=== PATIENT | female | born 1955 | race Hispanic/Latino ===

== ENCOUNTER 2018-12-13 16:20 | Inpatient (IN) | payer MEDICARE ==
--- NOTE | 2018-12-13 16:29 | Emergency Department Report ---
Blank Doc - Documentation Documentation: This is a 63-year-old female that presents with right sided abdominal pain wih radiation to right flank area. This initial assessment/diagnostic orders/clinical plan/treatment(s) is/are subject to change based on patient's health status, clinical progression and re- assessment by fellow clinical providers in the ED. Further treatment and workup at subsequent clinical providers discretion. Patient/guardians urged not to elope from the ED as their condition may be serious if not clinically assessed and managed. Initial orders include: 1- Patient sent to [facility] for further evaluation and treatment 2- labs 3- UA
[2018-12-13 17:12] LABS: Basophils # (Auto) 0.1 K/mm3 (0.0-0.1); Basophils % (Auto) 0.7 % (0.0-1.8); Eosinophils # (Auto) 0.1 K/mm3 (0.0-0.4); Eosinophils % (Auto) 0.4 % (0.0-4.3); Hematocrit 35.5 % (30.3-42.9); Hemoglobin 12.5 gm/dl (10.1-14.3); Lymphocytes # (Auto) 1.8 K/mm3 (1.2-5.4); Lymphocytes % (Auto) 10.6 % (13.4-35.0); Mean Corpuscular HGB Conc 35 % (30-34); Mean Corpuscular Volume 81 fl (79-97); Monocytes # (Auto) 0.9 K/mm3 (0.0-0.8); Monocytes % (Auto) 5.1 % (0.0-7.3); Platelet Count 476 K/mm3 (140-440); Red Blood Count 4.38 M/mm3 (3.65-5.03)
[2018-12-13 17:34] LABS: Albumin 3.2 g/dL (3.9-5); BUN/Creatinine Ratio 13; Blood Urea Nitrogen 21 mg/dL (7-17); Calcium 8.9 mg/dL (8.4-10.2); Hemolysis Index 9
[2018-12-13 17:54] LABS: Alanine Aminotransferase < 5 units/L (7-56)
[2018-12-13] MEDS ORDERED: ZOFRAN IV ONE (21:01)
[2018-12-13] MEDS ORDERED: TORADOL IV ONE (21:01)
[2018-12-13] MEDS ORDERED: NACL 0.9% 1000 ML 1,000 ML IV ONE (21:01)
--- NOTE | 2018-12-13 21:56 | Cat Scan Report ---
CT ABDOMEN AND PELVIS WITHOUT CONTRAST INDICATION / CLINICAL INFORMATION: Diffuse abdominal pain. TECHNIQUE: Axial CT images were obtained through the abdomen and pelvis without IV contrast. All CT scans at [facility] location are performed using CT dose reduction for ALARA by means of automated exposure control. COMPARISON: 06/16/2017. FINDINGS: LOWER CHEST: Large sebaceous cyst measuring 5 x 3 cm. Small hiatal hernia. LIVER: No recent change. GALLBLADDER: Appears mildly contracted but unchanged from BILE DUCTS: No significant abnormality. PANCREAS: No significant abnormality. SPLEEN: No significant abnormality. ADRENALS: No significant abnormality. RIGHT KIDNEY and URETER: Progression of atrophy of the right kidney with severe chronic right hydrour eteronephrosis. Staghorn calculi unchanged LEFT KIDNEY and URETER: Staghorn calculi with large obstructive stone near the left ureteropelvic tristen ction, unchanged. STOMACH and SMALL BOWEL: No significant abnormality. COLON: No significant abnormality. Large stool burden throughout the colon. APPENDIX: No significant abnormality. PERITONEUM: No free fluid. No free air. No fluid collection. LYMPH NODES: No significant adenopathy. AORTA and ARTERIES: No aneurysm. Severe atherosclerotic calcification. IVC and VEINS: No significant abnormality. URINARY BLADDER: No significant abnormality. REPRODUCTIVE ORGANS: No significant abnormality. ADDITIONAL FINDINGS: None. SKELETAL SYSTEM: No significant abnormality. IMPRESSION: Mild progression of atrophy of the right kidney when compared to 06/16/2017. Bilateral staghorn calcul i with obstruction bilaterally, as above. No significant changes identified in the interim within the limits of the noncontrast technique. Signer Name: Kofi Sheppard MD Signed: 12/13/2018 9:52 PM Workstation Name: [employer]
[2018-12-13] MEDS ORDERED: XYLOCAINE 1% MPF 5 mL INFILTRATI ONE (22:23)
[2018-12-13] MEDS ORDERED: ROCEPHIN IM ONE (22:23)
--- NOTE | 2018-12-13 22:40 | Emergency Department Report ---
ED Abdominal Pain HPI - General Chief Complaint: Abdominal Pain Stated Complaint: RT FLANK PAIN Time Seen by Provider: 12/13/18 16:28 Source: patient Mode of arrival: Ambulatory Limitations: No Limitations - History of Present Illness Initial Comments: PT is a 63 y/o female hx of COPD, Renal calculi, Staghorn left , who presents for right sided flank and abdominal pain radiating to super pubic pain is 7/10 exacerbated by voiding, relived by nothing pt denies n/v no fever no chills, does endorse dysuria no hematuria MD Complaint: abdominal pain, flank pain Onset/Timin -: week(s) Location: R flank Radiation: suprapubic Migration to: no migration Severity scale (0 -10): 8 Quality: aching Consistency: constant Improves With: nothing Worsens With: other (voiding ) Associated Symptoms: dysuria. denies: fever, chills, hematuria - Related Data Previous Rx's Medication Instructions Recorded Last Taken Type HYDROcodone/APAP 10-325 [[place] 1 each PO Q4H PRN #25 tablet 06/20/17 Unknown Rx 10-325 mg TAB] Pantoprazole [Protonix TAB] 40 mg PO QDAY #30 tablet 06/20/17 Unknown Rx levoFLOXacin [Levaquin TAB] 500 mg PO Q24HR #7 tablet 06/20/17 Unknown Rx Allergies Allergy/AdvReac Type Severity Reaction Status Date / Time No Known Allergies Allergy Verified 06/15/17 21:08 ED Review of Systems ROS: Stated complaint: RT FLANK PAIN Other details as noted in HPI Constitutional: denies: chills, fever Eyes: denies: eye pain, eye discharge, vision change ENT: denies: ear pain, throat pain Respiratory: denies: cough, shortness of breath, wheezing Cardiovascular: denies: chest pain, palpitations Endocrine: no symptoms reported Gastrointestinal: abdominal pain. denies: nausea, vomiting, diarrhea, constipation Genitourinary: urgency, dysuria. denies: frequency, hematuria Musculoskeletal: back pain Skin: denies: rash, lesions Neurological: denies: headache, weakness, paresthesias Psychiatric: as per HPI Hematological/Lymphatic: denies: easy bleeding, easy bruising ED Past Medical Hx - Past Medical History Previous Medical History?: Yes Hx COPD: Yes Additional medical history: NEUROPATHY - Surgical History Past Surgical History?: Yes - Social History Smoking Status: Never Smoker Substance Use Type: None - Medications Home Medications: Home Medications Medication Instructions Recorded Confirmed Last Taken Type HYDROcodone/APAP 10-325 [[place] 1 each PO Q4H PRN #25 tablet 06/20/17 Unknown Rx 10-325 mg TAB] Pantoprazole [Protonix TAB] 40 mg PO QDAY #30 tablet 06/20/17 Unknown Rx levoFLOXacin [Levaquin TAB] 500 mg PO Q24HR #7 tablet 06/20/17 Unknown Rx ED Physical Exam - General Limitations: No Limitations General appearance: alert, in no apparent distress - Head Head exam: Present: atraumatic, normocephalic - Eye Eye exam: Present: normal appearance, PERRL, EOMI Pupils: Present: normal accommodation - ENT ENT exam: Present: mucous membranes moist - Neck Neck exam: Present: normal inspection, tenderness, full ROM, lymphadenopathy - Respiratory Respiratory exam: Present: normal lung sounds bilaterally. Absent: respiratory distress, wheezes, stridor, chest wall tenderness - Cardiovascular Cardiovascular Exam: Present: regular rate, normal rhythm, normal heart sounds. Absent: systolic murmur, diastolic murmur, rubs, gallop - GI/Abdominal GI/Abdominal exam: Present: soft, tenderness (right CVA tenderness to palpation), normal bowel sounds. Absent: distended, guarding, rebound, rigid, bruit, hernia - Rectal Rectal exam: Present: deferred - External exam: Present: other (exam deferred ) - Extremities Exam Extremities exam: Present: normal inspection, full ROM, normal capillary refill. Absent: tenderness, pedal edema, joint swelling, calf tenderness - Back Exam Back exam: Present: full ROM, tenderness, CVA tenderness (R). Absent: muscle spasm, paraspinal tenderness, vertebral tenderness, rash noted - Neurological Exam Neurological exam: Present: alert, oriented X3, CN II-XII intact, normal gait, reflexes normal. Absent: motor sensory deficit - Psychiatric Psychiatric exam: Present: normal affect, normal mood - Skin Skin exam: Present: warm, dry, intact, normal color. Absent: rash ED Course Vital Signs 12/13/18 16:24 Temperature 98.2 F Pulse Rate 82 Respiratory 16 Rate Blood Pressure 110/71 O2 Sat by Pulse 97 Oximetry ED Medical Decision Making - Lab Data Result diagrams: 12/13/18 16:48 12/13/18 16:48 - Radiology Data Radiology results: report reviewed, image reviewed Ordering Physician: KHADAR JONES NP Date of Service: 12/13/18 Procedure(s): CT abdomen pelvis wo con Accession Number(s): [id number] cc: KHADAR JONES NP CT ABDOMEN AND PELVIS WITHOUT CONTRAST INDICATION / CLINICAL INFORMATION: Diffuse abdominal pain. TECHNIQUE: Axial CT images were obtained through the abdomen and pelvis without IV contrast. All CT scans at this location are performed using CT dose reduction for ALARA by means of automated exposure control. COMPARISON: 06/16/2017. FINDINGS: LOWER CHEST: Large sebaceous cyst measuring 5 x 3 cm. Small hiatal hernia. LIVER: No recent change. GALLBLADDER: Appears mildly contracted but unchanged from BILE DUCTS: No significant abnormality. PANCREAS: No significant abnormality. SPLEEN: No significant abnormality. ADRENALS: No significant abnormality. RIGHT KIDNEY and URETER: Progression of atrophy of the right kidney with severe chronic right hydroureteronephrosis. Staghorn calculi unchanged LEFT KIDNEY and URETER: Staghorn calculi with large obstructive stone near the left ureteropelvic junction, unchanged. STOMACH and SMALL BOWEL: No significant abnormality. COLON: No significant abnormality. Large stool burden throughout the colon. APPENDIX: No significant abnormality. PERITONEUM: No free fluid. No free air. No fluid collection. LYMPH NODES: No significant adenopathy. AORTA and ARTERIES: No aneurysm. Severe atherosclerotic calcification. IVC and VEINS: No significant abnormality. URINARY BLADDER: No significant abnormality. REPRODUCTIVE ORGANS: No significant abnormality. ADDITIONAL FINDINGS: None. SKELETAL SYSTEM: No significant abnormality. IMPRESSION: Mild progression of atrophy of the right kidney when compared to 06/16/2017. Bilateral staghorn calculi with obstruction bilaterally, as above. No significant changes identified in the interim within the limits of the noncontrast technique. Signer Name: Kofi Sheppard MD Signed: 12/13/2018 9:52 PM Workstation Name: [id number] Transcribed By: Dictated By: Kofi Sheppard MD Electronically Authenticated By: Kofi Sheppard MD Signed Date/Time: 12/13/182151 DD/ 48 TD/TT: - Medical Decision Making CT Abd pelvis: hydronephrposis severe chronic left, staghorn, , obstructed UPJ Staghourn, right Consulted ed attending, recommendation , consult urology/hospitalist Consulted urology Dr. Hare recommendation , admit to hospitalist, iv abx, discussed plan with hospitalist Dr. Ugarte recommendation admit dx LEONOR, Renal Stones, Hydronephrosis, abx , blood cultures, ua, urine cultures, discussed plan with patient, patient verbalized agreement and understanding of same. pt admitted to hospitalist at this time. Critical care attestation.: If time is entered above; I have spent that time in minutes in the direct care of this critically ill patient, excluding procedure time. ED Disposition Clinical Impression: Obstruction of kidney Hydronephrosis Qualifiers: Hydronephrosis type: unspecified Qualified Code(s): N13.30 - Unspecified hydronephrosis Disposition: 09 OP ADMIT IP TO THIS HOSP Is pt being admited?: Yes Does the pt Need Aspirin: No Condition: Stable Referrals: ARMOND KUNZ MD [Primary Care Provider] - 3-5 Days Time of Disposition: 22:55
--- NOTE | 2018-12-13 23:18 | History and Physical Report ---
History of Present Illness Chief complaint: 56-year-old woman who presented to the hospital abdominal pain nausea vomiting and diarrhea with intermittent blood in it CT abdomen and pelvis; no evidence of pancreatitis, abnormal thickening involv ing the distal gastric antrum just suspicious for possible gastritis, calcified fibroids Abdominal pain/ nausea/ vomiting Suspicious for gastritis, keep nothing by mouth, has received Pepcid, PPI daily, plan for scope in a.m. -Lipase negative, CT shows normal pancreas, therefore not consistent with pancreatitis Diarrhea, which occasionaly contains blood obtain stool studies, check cdiff, contact iso dvt ppx lovenox History of present illness: 63-year-old woman who presents to the hospital with right-sided flank pain and abdominal pain radiating to suprapubic area which is 7 out of 10 And exacerbated by voiding. No fevers no chills and no hematuria. She is well known to the urology service PMH: Bilateral staghorn calculi of the kidneys which are obstructive in nature, COPD, neuropathy PSH: Tonsillectomy SH: ex cig. smoker, quit about 10years ago, no alcohol or drug abuse, has 2 children, lives with son FH: no hypertension or DM - Medications and Allergies Allergies Allergy/AdvReac Type Severity Reaction Status Date / Time No Known Allergies Allergy Verified 06/15/17 21:08 Active Meds: Active Medications Levofloxacin/Dextrose (Levaquin 500mg/100ml) 500 mg in 100 mls @ 100 mls/hr IV Q24H COLBY; Protocol Review of Systems All systems: negative Constitutional: fatigue, malaise Ears, nose, mouth and throat: no ear pain Breasts: deferred Cardiovascular: no chest pain Respiratory: no cough Gastrointestinal: no nausea Genitourinary Female: no pelvic pain Rectal: no pain Musculoskeletal: no neck stiffness Integumentary: no rash Neurological: no head injury Psychiatric: no anxiety Endocrine: no cold intolerance Hematologic/Lymphatic: no easy bruising Allergic/Immunologic: no urticaria Exam - Constitutional Vitals: Temp Pulse Resp BP Pulse Ox 98.5 F 81 16 109/77 98 12/13/18 22:53 12/13/18 22:53 12/13/18 22:53 12/13/18 22:53 12/13/18 22:53 General appearance: Present: mild distress, well-nourished - EENT Eyes: Present: PERRL ENT: hearing intact, clear oral mucosa, other (dry mucous membranes) - Neck Neck: Present: supple, normal ROM - Respiratory Respiratory effort: normal Respiratory: bilateral: CTA - Cardiovascular Heart Sounds: Present: S1 & S2. Absent: rub, click - Extremities Extremities: pulses symmetrical, No edema Peripheral Pulses: within normal limits - Abdominal General gastrointestinal: Present: soft, tender (right flank tenderness), non-distended, normal bowel sounds Female genitourinary: Present: normal - Integumentary Integumentary: Present: clear, warm, dry - Musculoskeletal Musculoskeletal: gait normal, strength equal bilaterally - Psychiatric Psychiatric: appropriate mood/affect, intact judgment & insight - Neurologic Neurologic: CNII-XII intact, moves all extremities Results - Labs CBC & Chem 7: 12/13/18 16:48 12/13/18 16:48 Labs: Laboratory Last Values WBC 16.7 K/mm3 (4.5-11.0) H 12/13/18 16:48 RBC 4.38 M/mm3 (3.65-5.03) 12/13/18 16:48 Hgb 12.5 gm/dl (10.1-14.3) 12/13/18 16:48 Hct 35.5 % (30.3-42.9) 12/13/18 16:48 MCV 81 fl (79-97) 12/13/18 16:48 MCH 29 pg (28-32) 12/13/18 16:48 MCHC 35 % (30-34) H 12/13/18 16:48 RDW 18.0 % (13.2-15.2) H 12/13/18 16:48 Plt Count 476 K/mm3 (140-440) H 12/13/18 16:48 Lymph % (Auto) 10.6 % (13.4-35.0) L 12/13/18 16:48 [place] % (Auto) 5.1 % (0.0-7.3) 12/13/18 16:48 Eos % (Auto) 0.4 % (0.0-4.3) 12/13/18 16:48 Baso % (Auto) 0.7 % (0.0-1.8) 12/13/18 16:48 Lymph # 1.8 K/mm3 (1.2-5.4) 12/13/18 16:48 [place] # 0.9 K/mm3 (0.0-0.8) H 12/13/18 16:48 Eos # 0.1 K/mm3 (0.0-0.4) 12/13/18 16:48 Baso # 0.1 K/mm3 (0.0-0.1) 12/13/18 16:48 Seg Neutrophils % 83.2 % (40.0-70.0) H 12/13/18 16:48 Seg Neutrophils # 13.9 K/mm3 (1.8-7.7) H 12/13/18 16:48 Sodium 136 mmol/L (137-145) L 12/13/18 16:48 Potassium 3.5 mmol/L (3.6-5.0) L 12/13/18 16:48 Chloride 102.2 mmol/L (98-107) 12/13/18 16:48 Carbon Dioxide 20 mmol/L (22-30) L 12/13/18 16:48 17 mmol/L 12/13/18 16:48 BUN 21 mg/dL (7-17) H 12/13/18 16:48 1.6 mg/dL (0.7-1.2) H 12/13/18 16:48 Estimated GFR 32 ml/min 12/13/18 16:48 13 % 12/13/18 16:48 Glucose 101 mg/dL (65-100) H 12/13/18 16:48 Calcium 8.9 mg/dL (8.4-10.2) 12/13/18 16:48 0.40 mg/dL (0.1-1.2) 12/13/18 16:48 AST 10 units/L (5-40) 12/13/18 16:48 ALT < 5 units/L (7-56) L 12/13/18 16:48 95 units/L (35-129) 12/13/18 16:48 7.9 g/dL (6.3-8.2) 12/13/18 16:48 3.2 g/dL (3.9-5) L 12/13/18 16:48 0.7 % 12/13/18 16:48 21 units/L (13-60) 12/13/18 16:48 Assessment and Plan Assessment and plan: 63-year-old woman who presents to the hospital with right-sided flank pain and abdominal pain radiating to suprapubic area which is 7 out of 10 And exacerbated by voiding. No fevers no chills and no hematuria. She is well known to the urology service PMH: Bilateral staghorn calculi of the kidneys which are obstructive in nature, COPD, neuropathy PSH: Tonsillectomy SH: ex cig. 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
[2018-12-13] MEDS ORDERED: PHENERGAN PR PRN (23:20)
[2018-12-13] MEDS ORDERED: MORPHINE IV PRN (23:20)
[2018-12-13 23:42] LABS: Bacteria,Urine 2+ /HPF (Negative); Bilirubin,Urine NEG (Negative); Blood,Urine SM (Negative); Color,Urine Yellow (Yellow); Urobilinogen,Urine < 2.0 mg/dL (<2.0)
[2018-12-13] MEDS: NACL 0.45% 1000 ML 1,000 ML IV SCH (23:42)
[2018-12-13 23:44] LABS: WBC,Urine > 182.0 /HPF (0.0-6.0)
[2018-12-14] MEDS ORDERED: KCL 40 MEQ in NACL 0.45% 500 ML IV SCH (00:30)
[2018-12-14] MEDS: LEVAQUIN 500MG/100ML 500 MG/100 ML BAG IV SCH (02:58)
--- NOTE | 2018-12-14 05:14 | History and Physical Report ---
History of Present Illness Date of admission: 12/13/18 23:20 Chief complaint: flank pain History of present illness: 63-year-old woman who presents to the hospital with right-sided flank pain and abdominal pain radiating to suprapubic area which is 7 out of 10 And exacerbated by voiding. No fevers no chills and no hematuria. She is well known to the urology service PMH: Bilateral staghorn calculi of the kidneys which are obstructive in nature, COPD, neuropathy PSH: Tonsillectomy SH: ex cig. smoker, quit about 10years ago, no alcohol or drug abuse, has 2 children, lives with son FH: no hypertension or DM Review of Systems All systems: negative Constitutional: fatigue, malaise Ears, nose, mouth and throat: no ear pain Breasts: deferred Cardiovascular: no chest pain Respiratory: no cough Gastrointestinal: no nausea Genitourinary Female: no pelvic pain Rectal: no pain Musculoskeletal: no neck stiffness Integumentary: no rash Neurological: no head injury Psychiatric: no anxiety Endocrine: no cold intolerance Hematologic/Lymphatic: no easy bruising Allergic/Immunologic: no urticaria Medications and Allergies Allergies Allergy/AdvReac Type Severity Reaction Status Date / Time No Known Allergies Allergy Verified 06/15/17 21:08 Active Meds: Active Medications Acetaminophen (Tylenol) 650 mg PO Q4H PRN PRN Reason: Pain MILD(1-3)/Fever >100.5/STEELE Acetaminophen/Hydrocodone Bitart ([place] 10/325) 1 each PO Q4H PRN PRN Reason: Pain , Severe (7-10) Enoxaparin Sodium (Lovenox) 40 mg SUB-Q QDAY COLBY Levofloxacin/Dextrose (Levaquin 500mg/100ml) 500 mg in 100 mls @ 100 mls/hr IV Q24H COLBY; Protocol Last Admin: 12/14/18 02:58 Dose: 100 mls/hr Documented by: Sodium Chloride (Nacl 0.45% 1000 Ml) 1,000 mls @ 75 mls/hr IV DIRECT COLBY Last Admin: 12/13/18 23:42 Dose: 75 mls/hr Documented by: Morphine Sulfate (Morphine) 4 mg IV Q4H PRN PRN Reason: Pain, Moderate (4-6) Ondansetron HCl (Zofran) 4 mg IV Q8H PRN PRN Reason: Nausea And Vomiting Pantoprazole Sodium (Protonix) 40 mg PO QDAY COLBY Promethazine HCl (Phenergan) 25 mg MS Q6H PRN PRN Reason: N/V IF NPO AND NO IV ACCESS Sodium Chloride (Sodium Chloride Flush Syringe 10 Ml) 10 ml IV BID [facility] Exam - Physical Exam Narrative exam: General appearance: Present: mild distress, well-nourished - EENT Eyes: Present: PERRL ENT: hearing intact, clear oral mucosa, other (dry mucous membranes) - Neck Neck: Present: supple, normal ROM - Respiratory Respiratory effort: normal Respiratory: bilateral: CTA - Cardiovascular Heart Sounds: Present: S1 & S2. Absent: rub, click - Extremities Extremities: pulses symmetrical, No edema Peripheral Pulses: within normal limits - Abdominal General gastrointestinal: Present: soft, tender (right flank tenderness), non- distended, normal bowel sounds Female genitourinary: Present: normal - Integumentary Integumentary: Present: clear, warm, dry - Musculoskeletal Musculoskeletal: gait normal, strength equal bilaterally - Psychiatric Psychiatric: appropriate mood/affect, intact judgment & insight - Neurologic Neurologic: CNII-XII intact, moves all extremities - Constitutional Vitals: Temp Pulse Resp BP Pulse Ox 98.8 F 78 18 140/77 97 12/14/18 02:09 12/14/18 02:09 12/14/18 02:09 12/14/18 02:09 12/14/18 02:09 Results - Labs CBC & Chem 7: 12/13/18 16:48 12/13/18 16:48 Labs: Laboratory Last Values WBC 16.7 K/mm3 (4.5-11.0) H 12/13/18 16:48 RBC 4.38 M/mm3 (3.65-5.03) 12/13/18 16:48 Hgb 12.5 gm/dl (10.1-14.3) 12/13/18 16:48 Hct 35.5 % (30.3-42.9) 12/13/18 16:48 MCV 81 fl (79-97) 12/13/18 16:48 MCH 29 pg (28-32) 12/13/18 16:48 MCHC 35 % (30-34) H 12/13/18 16:48 RDW 18.0 % (13.2-15.2) H 12/13/18 16:48 Plt Count 476 K/mm3 (140-440) H 12/13/18 16:48 Lymph % (Auto) 10.6 % (13.4-35.0) L 12/13/18 16:48 [place] % (Auto) 5.1 % (0.0-7.3) 12/13/18 16:48 Eos % (Auto) 0.4 % (0.0-4.3) 12/13/18 16:48 Baso % (Auto) 0.7 % (0.0-1.8) 12/13/18 16:48 Lymph # 1.8 K/mm3 (1.2-5.4) 12/13/18 16:48 [place] # 0.9 K/mm3 (0.0-0.8) H 12/13/18 16:48 Eos # 0.1 K/mm3 (0.0-0.4) 12/13/18 16:48 Baso # 0.1 K/mm3 (0.0-0.1) 12/13/18 16:48 Seg Neutrophils % 83.2 % (40.0-70.0) H 12/13/18 16:48 Seg Neutrophils # 13.9 K/mm3 (1.8-7.7) H 12/13/18 16:48 Sodium 136 mmol/L (137-145) L 12/13/18 16:48 Potassium 3.5 mmol/L (3.6-5.0) L 12/13/18 16:48 Chloride 102.2 mmol/L (98-107) 12/13/18 16:48 Carbon Dioxide 20 mmol/L (22-30) L 12/13/18 16:48 17 mmol/L 12/13/18 16:48 BUN 21 mg/dL (7-17) H 12/13/18 16:48 1.6 mg/dL (0.7-1.2) H 12/13/18 16:48 Estimated GFR 32 ml/min 12/13/18 16:48 13 % 12/13/18 16:48 Glucose 101 mg/dL (65-100) H 12/13/18 16:48 Calcium 8.9 mg/dL (8.4-10.2) 12/13/18 16:48 0.40 mg/dL (0.1-1.2) 12/13/18 16:48 AST 10 units/L (5-40) 12/13/18 16:48 ALT < 5 units/L (7-56) L 12/13/18 16:48 95 units/L (35-129) 12/13/18 16:48 7.9 g/dL (6.3-8.2) 12/13/18 16:48 3.2 g/dL (3.9-5) L 12/13/18 16:48 0.7 % 12/13/18 16:48 21 units/L (13-60) 12/13/18 16:48 Yellow (Yellow) 12/13/18 21:34 Cloudy (Clear) 12/13/18 21:34 7.0 (5.0-7.0) 12/13/18 21:34 Ur Specific [place] 1.012 (1.003-1.030) 12/13/18 21:34 100 mg/dl mg/dL (Negative) 12/13/18 21:34 Neg mg/dL (Negative) 12/13/18 21:34 Neg mg/dL (Negative) 12/13/18 21:34 Sm (Negative) 12/13/18 21:34 Pos (Negative) 12/13/18 21:34 Neg (Negative) 12/13/18 21:34 < 2.0 mg/dL (<2.0) 12/13/18 21:34 Ur Leukocyte Esterase Lg (Negative) 12/13/18 21:34 > 182.0 /HPF (0.0-6.0) H 12/13/18 21:34 22.0 /HPF (0.0-6.0) 12/13/18 21:34 U Epithel Cells (Auto) 1.0 /HPF (0-13.0) 12/13/18 21:34 2+ /HPF (Negative) 12/13/18 21:34 2+ /HPF 12/13/18 21:34 Assessment and Plan Assessment and plan: 63-year-old woman who presents to the hospital with right-sided flank pain and abdominal pain radiating to suprapubic area which is 7 out of 10 And exacerbated by voiding. No fevers no chills and no hematuria. She is well known to the urology service PMH: Bilateral staghorn calculi of the kidneys which are obstructive in nature, COPD, neuropathy PSH: Tonsillectomy SH: ex cig. 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
[2018-12-14 06:19] LABS: Basophils # (Auto) 0.1 K/mm3 (0.0-0.1); Basophils % (Auto) 0.6 % (0.0-1.8); Eosinophils # (Auto) 0.2 K/mm3 (0.0-0.4); Eosinophils % (Auto) 1.4 % (0.0-4.3); Hematocrit 33.7 % (30.3-42.9); Hemoglobin 11.1 gm/dl (10.1-14.3); Lymphocytes # (Auto) 1.6 K/mm3 (1.2-5.4); Lymphocytes % (Auto) 13.2 % (13.4-35.0); Mean Corpuscular HGB Conc 33 % (30-34); Mean Corpuscular Volume 84 fl (79-97); Monocytes % (Auto) 8.1 % (0.0-7.3); Platelet Count 381 K/mm3 (140-440); Red Blood Count 4.03 M/mm3 (3.65-5.03); Red Cell Distribution Width 18.2 % (13.2-15.2)
[2018-12-14 06:36] LABS: Calcium 8.3 mg/dL (8.4-10.2)
--- NOTE | 2018-12-14 09:13 | Progress Note ---
Hospitalist Physical - Constitutional Vitals: Temp Pulse Resp BP Pulse Ox 99.3 F 79 20 130/60 99 12/14/18 08:28 12/14/18 08:28 12/14/18 08:28 12/14/18 08:28 12/14/18 08:28 General appearance: Present: mild distress, well-nourished Results - Labs CBC & Chem 7: 12/14/18 06:00 12/14/18 06:00 Labs: Laboratory Last Values WBC 12.0 K/mm3 (4.5-11.0) H 12/14/18 06:00 RBC 4.03 M/mm3 (3.65-5.03) 12/14/18 06:00 Hgb 11.1 gm/dl (10.1-14.3) 12/14/18 06:00 Hct 33.7 % (30.3-42.9) 12/14/18 06:00 MCV 84 fl (79-97) 12/14/18 06:00 MCH 27 pg (28-32) L 12/14/18 06:00 MCHC 33 % (30-34) 12/14/18 06:00 RDW 18.2 % (13.2-15.2) H 12/14/18 06:00 Plt Count 381 K/mm3 (140-440) 12/14/18 06:00 Lymph % (Auto) 13.2 % (13.4-35.0) L 12/14/18 06:00 [place] % (Auto) 8.1 % (0.0-7.3) H 12/14/18 06:00 Eos % (Auto) 1.4 % (0.0-4.3) 12/14/18 06:00 Baso % (Auto) 0.6 % (0.0-1.8) 12/14/18 06:00 Lymph # 1.6 K/mm3 (1.2-5.4) 12/14/18 06:00 [place] # 1.0 K/mm3 (0.0-0.8) H 12/14/18 06:00 Eos # 0.2 K/mm3 (0.0-0.4) 12/14/18 06:00 Baso # 0.1 K/mm3 (0.0-0.1) 12/14/18 06:00 Seg Neutrophils % 76.7 % (40.0-70.0) H 12/14/18 06:00 Seg Neutrophils # 9.2 K/mm3 (1.8-7.7) H 12/14/18 06:00 Sodium 136 mmol/L (137-145) L 12/13/18 16:48 Potassium 4.7 mmol/L (3.6-5.0) D 12/14/18 06:00 Chloride 102.2 mmol/L (98-107) 12/13/18 16:48 Carbon Dioxide 19 mmol/L (22-30) L 12/14/18 06:00 17 mmol/L 12/13/18 16:48 BUN 21 mg/dL (7-17) H 12/14/18 06:00 1.7 mg/dL (0.7-1.2) H 12/14/18 06:00 Estimated GFR 30 ml/min 12/14/18 06:00 12 % 12/14/18 06:00 Glucose 81 mg/dL (65-100) 12/14/18 06:00 Calcium 8.3 mg/dL (8.4-10.2) L 12/14/18 06:00 0.40 mg/dL (0.1-1.2) 12/13/18 16:48 AST 10 units/L (5-40) 12/13/18 16:48 ALT < 5 units/L (7-56) L 12/13/18 16:48 95 units/L (35-129) 12/13/18 16:48 7.9 g/dL (6.3-8.2) 12/13/18 16:48 3.2 g/dL (3.9-5) L 12/13/18 16:48 0.7 % 12/13/18 16:48 21 units/L (13-60) 12/13/18 16:48 Yellow (Yellow) 12/13/18 21:34 Cloudy (Clear) 12/13/18 21:34 7.0 (5.0-7.0) 12/13/18 21:34 Ur Specific [place] 1.012 (1.003-1.030) 12/13/18 21:34 100 mg/dl mg/dL (Negative) 12/13/18 21:34 Neg mg/dL (Negative) 12/13/18 21:34 Neg mg/dL (Negative) 12/13/18 21:34 Sm (Negative) 12/13/18 21:34 Pos (Negative) 12/13/18 21:34 Neg (Negative) 12/13/18 21:34 < 2.0 mg/dL (<2.0) 12/13/18 21:34 Ur Leukocyte Esterase Lg (Negative) 12/13/18 21:34 > 182.0 /HPF (0.0-6.0) H 12/13/18 21:34 22.0 /HPF (0.0-6.0) 12/13/18 21:34 U Epithel Cells (Auto) 1.0 /HPF (0-13.0) 12/13/18 21:34 2+ /HPF (Negative) 12/13/18 21:34 2+ /HPF 12/13/18 21:34 Active Medications - Current Medications Current Medications: Generic Name Dose Route Start Last Admin Trade Name Freq PRN Reason Stop Dose Admin Acetaminophen 650 mg 12/13/18 23:20 Tylenol PO Q4H PRN Pain MILD(1-3)/Fever >100.5/STEELE Acetaminophen/Hydrocodone Bitart 1 each 12/13/18 23:20 [place] 10/325 PO Q4H PRN Pain , Severe (7-10) Enoxaparin Sodium 40 mg 12/14/18 10:00 Lovenox SUB-Q QDAY COLBY Levofloxacin/Dextrose 500 mg in 100 mls @ 100 mls/hr 12/14/18 01:00 12/14/18 02:58 Levaquin 500mg/100ml IV 100 mls/hr Q24H COLBY Administration Protocol Sodium Chloride 1,000 mls @ 75 mls/hr 12/13/18 23:45 12/13/18 23:42 Nacl 0.45% 1000 Ml IV 75 mls/hr DIRECT COLBY Administration Morphine Sulfate 4 mg 12/13/18 23:20 Morphine IV Q4H PRN Pain, Moderate (4-6) Ondansetron HCl 4 mg 12/13/18 23:20 Zofran IV Q8H PRN Nausea And Vomiting Pantoprazole Sodium 40 mg 12/14/18 10:00 Protonix PO QDAY COLBY Promethazine HCl 25 mg 12/13/18 23:20 Phenergan [place] Q6H PRN N/V IF NPO AND NO IV ACCESS Sodium Chloride 10 ml 12/14/18 10:00 Sodium Chloride Flush Syringe 10 Ml IV BID COLBY
--- NOTE | 2018-12-14 09:20 | Progress Note ---
Assessment and Plan Assessment and plan: Bilateral staghorn calculi with obstruction bilaterally - Urologist consulted and stated patient is noncompliant & didn't follow in the office, no aggressive treatment needed - IR consulted and will do procedure today Hypokalemia -Corrected UTI - Patient is on antibiotics - Urine culture pending DVT prophylaxis Disposition; continue inpatient care. History Interval history: Patient was seen and evaluated this morning. Patient's pain subsided. Hospitalist Physical - Constitutional Vitals: Temp Pulse Resp BP Pulse Ox 99.3 F 79 20 130/60 99 12/14/18 08:28 12/14/18 08:28 12/14/18 08:28 12/14/18 08:28 12/14/18 08:28 General appearance: Present: mild distress, well-nourished - EENT Eyes: Absent: scleral icterus, conjunctival injection ENT: hearing intact, clear oral mucosa - Neck Neck: Present: supple, normal ROM - Respiratory Respiratory effort: normal - Cardiovascular Rhythm: regular Heart Sounds: Present: S1 & S2 - Extremities Extremities: no ischemia, No edema Peripheral Pulses: within normal limits - Abdominal General gastrointestinal: soft, non-tender, non-distended - Integumentary Integumentary: Present: clear, warm, dry - Psychiatric Psychiatric: appropriate mood/affect - Neurologic Neurologic: CNII-XII intact - Allied Health Allied health notes reviewed: nursing Results - Labs CBC & Chem 7: 12/14/18 06:00 12/14/18 06:00 Labs: Laboratory Last Values WBC 12.0 K/mm3 (4.5-11.0) H 12/14/18 06:00 RBC 4.03 M/mm3 (3.65-5.03) 12/14/18 06:00 Hgb 11.1 gm/dl (10.1-14.3) 12/14/18 06:00 Hct 33.7 % (30.3-42.9) 12/14/18 06:00 MCV 84 fl (79-97) 12/14/18 06:00 MCH 27 pg (28-32) L 12/14/18 06:00 MCHC 33 % (30-34) 12/14/18 06:00 RDW 18.2 % (13.2-15.2) H 12/14/18 06:00 Plt Count 381 K/mm3 (140-440) 12/14/18 06:00 Lymph % (Auto) 13.2 % (13.4-35.0) L 12/14/18 06:00 [place] % (Auto) 8.1 % (0.0-7.3) H 12/14/18 06:00 Eos % (Auto) 1.4 % (0.0-4.3) 12/14/18 06:00 Baso % (Auto) 0.6 % (0.0-1.8) 12/14/18 06:00 Lymph # 1.6 K/mm3 (1.2-5.4) 12/14/18 06:00 [place] # 1.0 K/mm3 (0.0-0.8) H 12/14/18 06:00 Eos # 0.2 K/mm3 (0.0-0.4) 12/14/18 06:00 Baso # 0.1 K/mm3 (0.0-0.1) 12/14/18 06:00 Seg Neutrophils % 76.7 % (40.0-70.0) H 12/14/18 06:00 Seg Neutrophils # 9.2 K/mm3 (1.8-7.7) H 12/14/18 06:00 Sodium 136 mmol/L (137-145) L 12/13/18 16:48 Potassium 4.7 mmol/L (3.6-5.0) D 12/14/18 06:00 Chloride 102.2 mmol/L (98-107) 12/13/18 16:48 Carbon Dioxide 19 mmol/L (22-30) L 12/14/18 06:00 17 mmol/L 12/13/18 16:48 BUN 21 mg/dL (7-17) H 12/14/18 06:00 1.7 mg/dL (0.7-1.2) H 12/14/18 06:00 Estimated GFR 30 ml/min 12/14/18 06:00 12 % 12/14/18 06:00 Glucose 81 mg/dL (65-100) 12/14/18 06:00 Calcium 8.3 mg/dL (8.4-10.2) L 12/14/18 06:00 0.40 mg/dL (0.1-1.2) 12/13/18 16:48 AST 10 units/L (5-40) 12/13/18 16:48 ALT < 5 units/L (7-56) L 12/13/18 16:48 95 units/L (35-129) 12/13/18 16:48 7.9 g/dL (6.3-8.2) 12/13/18 16:48 3.2 g/dL (3.9-5) L 12/13/18 16:48 0.7 % 12/13/18 16:48 21 units/L (13-60) 12/13/18 16:48 Yellow (Yellow) 12/13/18 21:34 Cloudy (Clear) 12/13/18 21:34 7.0 (5.0-7.0) 12/13/18 21:34 Ur Specific [place] 1.012 (1.003-1.030) 12/13/18 21:34 100 mg/dl mg/dL (Negative) 12/13/18 21:34 Neg mg/dL (Negative) 12/13/18 21:34 Neg mg/dL (Negative) 12/13/18 21:34 Sm (Negative) 12/13/18 21:34 Pos (Negative) 12/13/18 21:34 Neg (Negative) 12/13/18 21:34 < 2.0 mg/dL (<2.0) 12/13/18 21:34 Ur Leukocyte Esterase Lg (Negative) 12/13/18 21:34 > 182.0 /HPF (0.0-6.0) H 12/13/18 21:34 22.0 /HPF (0.0-6.0) 12/13/18 21:34 U Epithel Cells (Auto) 1.0 /HPF (0-13.0) 12/13/18 21:34 2+ /HPF (Negative) 12/13/18 21:34 2+ /HPF 12/13/18 21:34 Active Medications - Current Medications Current Medications: Generic Name Dose Route Start Last Admin Trade Name Freq PRN Reason Stop Dose Admin Acetaminophen 650 mg 12/13/18 23:20 Tylenol PO Q4H PRN Pain MILD(1-3)/Fever >100.5/STEELE Acetaminophen/Hydrocodone Bitart 1 each 12/13/18 23:20 [place] 10/325 PO Q4H PRN Pain , Severe (7-10) Enoxaparin Sodium 40 mg 12/14/18 10:00 Lovenox SUB-Q QDAY COLBY Levofloxacin/Dextrose 500 mg in 100 mls @ 100 mls/hr 12/14/18 01:00 12/14/18 02:58 Levaquin 500mg/100ml IV 100 mls/hr Q24H COLBY Administration Protocol Sodium Chloride 1,000 mls @ 75 mls/hr 12/13/18 23:45 12/13/18 23:42 Nacl 0.45% 1000 Ml IV 75 mls/hr DIRECT COLBY Administration Morphine Sulfate 4 mg 12/13/18 23:20 Morphine IV Q4H PRN Pain, Moderate (4-6) Ondansetron HCl 4 mg 12/13/18 23:20 Zofran IV Q8H PRN Nausea And Vomiting Pantoprazole Sodium 40 mg 12/14/18 10:00 Protonix PO QDAY [facility] Promethazine HCl 25 mg 12/13/18 23:20 Phenergan ID Q6H PRN N/V IF NPO AND NO IV ACCESS Sodium Chloride 10 ml 12/14/18 10:00 Sodium Chloride Flush Syringe 10 Ml IV BID COLBY
[2018-12-14] MEDS: PROTONIX PO SCH (10:00)
[2018-12-14] MEDS ORDERED: XYLOCAINE 2% INFILTRATI ONE ×3 (11:48→12:31)
[2018-12-14] MEDS ORDERED: NACL 0.9% 250ML 250 ML ONE (11:48)
[2018-12-14] MEDS ORDERED: NACL 0.9% 500 ML IR ONE (11:48)
[2018-12-14] MEDS ORDERED: VERSED ONE (11:49)
[2018-12-14] MEDS ORDERED: SUBLIMAZE ONE (11:49)
[2018-12-14] MEDS: SODIUM CHLORIDE FLUSH SYRINGE 10 ML IV SCH ×2 (12:00→22:30)
[2018-12-14] MEDS ORDERED: VERSED IV ONE ×2 (12:13→12:34)
[2018-12-14] MEDS ORDERED: SUBLIMAZE IV ONE ×2 (12:13→12:32)
--- NOTE | 2018-12-14 12:48 | Operative Report ---
Operative Report Operative Report: Exam: Ultrasound and fluoroscopic guided placement of left and right nephrostomy tubes Clinical indication: Patient with obstructing bilateral renal stones and bilateral hydronephrosis Date: 12/14/2018 Procedure: Following an explanation of the risks, benefits and alternatives; written informed consent was obtained. The patient was brought into graphic suite and placed in prone position on the examination table. Initial ultrasound evaluation of the left kidney demonstrated moderate hydronephrosis. Initial ultrasound evaluation of the right kidney demonstrated a patulous hydronephrotic kidney with cortical thinning. The patient's lower back was prepped and draped in the usual sterile fashion. 1% lidocaine was used for anesthesia. Right: Under ultrasound guidance, a posterior superior calyx was entered using a 15 cm 21-gauge needle. A 0.018 guidewire was advanced and coiled within the renal pelvis. The needle was removed and following serial dilation over the guidewire under fluoroscopy, an 8 [place] nephrostomy tube was advanced over the guidewire centrally. The pigtail was placed within the renal pelvis however, there is distortion of the pigtail secondary to the large obstructing pelvic stone. Contrast was injected to document appropriate positioning. The catheter was securely fastened at skin surface using 2-0 Ethilon suture and StayFix device. The catheter was in place to dependent drainage. Left: Under ultrasound guidance, the dilated left kidney was entered superiorly and posteriorly using a 15 setter meter 21-gauge needle. A 0.018 guidewire was advanced centrally and coiled within the renal pelvis. The needle was removed and following serial dilation over the guidewire under fluoroscopy, an 8 [place] nephrostomy tube was advanced over the guidewire centrally. The pigtail was placed within the renal pelvis. There is prompt return of purulent fluid. A s ample was sent for laboratory analysis. The catheter was securely fastened at skin surface using 3-0 Ethilon suture in a StayFix device. The catheter was in place to dependent drainage. Dressings were applied to both catheter entrance sites. She tolerated the procedure well. There were no immediate post procedure complications. Conscious sedation was performed under the guidance of radiologic nursing. Continuous cardiopulmonary monitoring was utilized. Impression: Ultrasound and fluoroscopic guided placement of left and right 8 [place] nephrostomy tubes. Purulent fluid is present within the right kidney, a sample was sent for laboratory analysis.
--- NOTE | 2018-12-14 12:57 | Consultation ---
History of Present Illness - Reason for Consult Consult date: 12/14/18 - History of Present Illness consult for kidney stones we saw pt for same problem (no showed & cancelled office appt) PT is a 63 y/o female hx of COPD, Renal calculi, left , who presents for right sided flank and abdominal pain radiating to super pubic pain is 7/10 exacerbated by voiding, relived by nothing pt denies n/v no fever no chills, does endorse dysuria no hematuria Ultrasound and fluoroscopic guided placement of left and right nephrostomy tubes (today 12-14-18--Dr. Fulton) exam perc tubes clean & intact A/P bilat kidney stone (nuclear scan ---left kdiney fx 85%/right 15%) home with percs (no stents to be placed) f/u in office when stable for more planning & re evaluation Medications and Allergies Allergies Allergy/AdvReac Type Severity Reaction Status Date / Time No Known Allergies Allergy Verified 06/15/17 21:08 Active Meds: Active Medications Acetaminophen (Tylenol) 650 mg PO Q4H PRN PRN Reason: Pain MILD(1-3)/Fever >100.5/STEELE Acetaminophen/Hydrocodone Bitart ([place] 10/325) 1 each PO Q4H PRN PRN Reason: Pain , Severe (7-10) Enoxaparin Sodium (Lovenox) 40 mg SUB-Q QDAY COLBY Levofloxacin/Dextrose (Levaquin 500mg/100ml) 500 mg in 100 mls @ 100 mls/hr IV Q24H COLBY; Protocol Last Admin: 12/14/18 02:58 Dose: 100 mls/hr Documented by: Sodium Chloride (Nacl 0.45% 1000 Ml) 1,000 mls @ 75 mls/hr IV DIRECT COLBY Last Admin: 12/13/18 23:42 Dose: 75 mls/hr Documented by: Morphine Sulfate (Morphine) 4 mg IV Q4H PRN PRN Reason: Pain, Moderate (4-6) Ondansetron HCl (Zofran) 4 mg IV Q8H PRN PRN Reason: Nausea And Vomiting Pantoprazole Sodium (Protonix) 40 mg PO QDAY COLBY Promethazine HCl (Phenergan) 25 mg [place] Q6H PRN PRN Reason: N/V IF NPO AND NO IV ACCESS Sodium Chloride (Sodium Chloride Flush Syringe 10 Ml) 10 ml IV BID COLBY Exam - Constitutional Vitals: Temp Pulse Resp BP Pulse Ox 99.3 F 79 20 130/60 99 12/14/18 08:28 12/14/18 08:28 12/14/18 08:28 12/14/18 08:28 12/14/18 08:28 Results - Labs CBC & Chem 7: 12/14/18 06:00 12/14/18 06:00 Labs: Abnormal lab results 12/13/18 12/13/18 12/13/18 Range/Units 16:48 16:48 21:34 WBC 16.7 H (4.5-11.0) K/mm3 MCH (28-32) pg MCHC 35 H (30-34) % RDW 18.0 H (13.2-15.2) % Plt Count 476 H (140-440) K/mm3 Lymph % (Auto) 10.6 L (13.4-35.0) % [place] % (Auto) (0.0-7.3) % [place] # 0.9 H (0.0-0.8) K/mm3 Seg Neutrophils % 83.2 H (40.0-70.0) % Seg Neutrophils # 13.9 H (1.8-7.7) K/mm3 Sodium 136 L (137-145) mmol/L Potassium 3.5 L (3.6-5.0) mmol/L Carbon Dioxide 20 L (22-30) mmol/L BUN 21 H (7-17) mg/dL Creatinine 1.6 H (0.7-1.2) mg/dL Glucose 101 H (65-100) mg/dL Calcium (8.4-10.2) mg/dL ALT < 5 L (7-56) units/L Albumin 3.2 L (3.9-5) g/dL Urine WBC (Auto) > 182.0 H (0.0-6.0) /HPF 12/14/18 12/14/18 Range/Units 06:00 06:00 WBC 12.0 H (4.5-11.0) K/mm3 MCH 27 L (28-32) pg MCHC (30-34) % RDW 18.2 H (13.2-15.2) % Plt Count (140-440) K/mm3 Lymph % (Auto) 13.2 L (13.4-35.0) % [place] % (Auto) 8.1 H (0.0-7.3) % [place] # 1.0 H (0.0-0.8) K/mm3 Seg Neutrophils % 76.7 H (40.0-70.0) % Seg Neutrophils # 9.2 H (1.8-7.7) K/mm3 Sodium (137-145) mmol/L Potassium (3.6-5.0) mmol/L Carbon Dioxide 19 L (22-30) mmol/L BUN 21 H (7-17) mg/dL Creatinine 1.7 H (0.7-1.2) mg/dL Glucose (65-100) mg/dL Calcium 8.3 L (8.4-10.2) mg/dL ALT (7-56) units/L Albumin (3.9-5) g/dL Urine WBC (Auto) (0.0-6.0) /HPF
--- NOTE | 2018-12-14 14:17 | Progress Note ---
Subjective Date of service: 12/14/18 Principal diagnosis: LEONOR Interval history: This is a 63 yo F with past medical history of COPD, bilateral renal Staghorn calculi, who presents for right sided flank and abdominal pain radiating to super pubic pain is 7/10 exacerbated by voiding, also c/o dysuria no hematuria. pt denies n/v no fever no chills. pt has history of non-compliance with urological follow up. CT A/P showed bilateral Staghorn calculi with obstructive uropathy Objective - Vital Signs Vital signs: Vital Signs - 12hr 12/14/18 12/14/18 12/14/18 03:33 08:28 13:28 Temperature 99.3 F 97.9 F Pulse Rate 65 79 89 Respiratory 20 20 Rate Blood Pressure 130/60 110/64 O2 Sat by Pulse 99 98 Oximetry - Lab 12/14/18 06:00 12/14/18 06:00 Most recent lab results Calcium 8.3 mg/dL (8.4-10.2) L 12/14/18 06:00 Medications & Allergies - Medications Allergies/Adverse Reactions: Allergies No Known Allergies Allergy (Verified 06/15/17 21:08) Active Medications: Generic Name Dose Route Start Last Admin Trade Name Freq PRN Reason Stop Dose Admin Acetaminophen 650 mg 12/13/18 23:20 Tylenol PO Q4H PRN Pain MILD(1-3)/Fever >100.5/STEELE Acetaminophen/Hydrocodone Bitart 1 each 12/13/18 23:20 [place] 10/325 PO Q4H PRN Pain , Severe (7-10) Enoxaparin Sodium 40 mg 12/14/18 10:00 Lovenox SUB-Q QDAY COLBY Levofloxacin/Dextrose 500 mg in 100 mls @ 100 mls/hr 12/14/18 01:00 12/14/18 02:58 Levaquin 500mg/100ml IV 100 mls/hr Q24H COLBY Administration Protocol Sodium Chloride 1,000 mls @ 75 mls/hr 12/13/18 23:45 12/13/18 23:42 Nacl 0.45% 1000 Ml IV 75 mls/hr DIRECT COLBY Administration Morphine Sulfate 4 mg 12/13/18 23:20 Morphine IV Q4H PRN Pain, Moderate (4-6) Ondansetron HCl 4 mg 12/13/18 23:20 Zofran IV Q8H PRN Nausea And Vomiting Pantoprazole Sodium 40 mg 12/14/18 10:00 Protonix PO QDAY COLBY Promethazine HCl 25 mg 12/13/18 23:20 Phenergan [place] Q6H PRN N/V IF NPO AND NO IV ACCESS Sodium Chloride 10 ml 12/14/18 10:00 Sodium Chloride Flush Syringe 10 Ml IV BID COLBY
--- NOTE | 2018-12-14 14:24 | Consultation ---
History of Present Illness - Reason for Consult Consult date: 12/14/18 acute renal failure Requesting physician: SHMUEL CRAWFORD - History of Present Illness This is a 63 yo F with past medical history of COPD, bilateral renal Staghorn calculi, who presents for right sided flank and abdominal pain radiating to super pubic pain is 7/10 exacerbated by voiding, also c/o dysuria no hematuria. pt denies n/v no fever no chills. pt has history of non-compliance with urolo gical follow up. CT A/P showed bilateral Staghorn calculi with b/l obstructive uropathy. It also showed progression of R renal atrophy. As per urology note nuclear scan in 06/2017 showed left kdiney fx 85%/right 15%. patient underwent b/l percutaneous nephrostomy placement. Labs showed elevated BUN/Cr at 21/1.7mg/dl along with hyponatremia/hypokalemia for which renal consult is requested. Pt denies recent NSAIDs use or IV contrast exposure. Past History Past Medical History: COPD, renal failure, other (nephrolithiasis ) Past Surgical History: tonsillectomy, Other (bilateral nephrosctomy placement ) Social history: other (ex cig. smoker, quit about 10years ago, no alcohol or drug abuse, has 2 children, lives with son) Family history: no significant family history Medications and Allergies Allergies Allergy/AdvReac Type Severity Reaction Status Date / Time No Known Allergies Allergy Verified 06/15/17 21:08 Active Meds: Active Medications Acetaminophen (Tylenol) 650 mg PO Q4H PRN PRN Reason: Pain MILD(1-3)/Fever >100.5/STEELE Acetaminophen/Hydrocodone Bitart ([place] 10/325) 1 each PO Q4H PRN PRN Reason: Pain , Severe (7-10) Enoxaparin Sodium (Lovenox) 40 mg SUB-Q QDAY COLBY Levofloxacin/Dextrose (Levaquin 500mg/100ml) 500 mg in 100 mls @ 100 mls/hr IV Q24H COLBY; Protocol Last Admin: 12/14/18 02:58 Dose: 100 mls/hr Documented by: Sodium Chloride (Nacl 0.45% 1000 Ml) 1,000 mls @ 75 mls/hr IV DIRECT COLBY Last Admin: 08/15/19 23:42 Dose: 75 mls/hr Documented by: Morphine Sulfate (Morphine) 4 mg IV Q4H PRN PRN Reason: Pain, Moderate (4-6) Ondansetron HCl (Zofran) 4 mg IV Q8H PRN PRN Reason: Nausea And Vomiting Pantoprazole Sodium (Protonix) 40 mg PO QDAY COLBY Promethazine HCl (Phenergan) 25 mg [place] Q6H PRN PRN Reason: N/V IF NPO AND NO IV ACCESS Sodium Chloride (Sodium Chloride Flush Syringe 10 Ml) 10 ml IV BID COLBY Review of Systems All systems: negative Constitutional: weakness, malaise, poor appetite Gastrointestinal: abdominal pain, nausea Genitourinary Female: dysuria, urgency, hematuria Exam - Vital Signs Vital signs: Vital Signs Temp Pulse Resp BP Pulse Ox 98.2 F 82 16 110/71 97 12/13/18 16:24 12/13/18 16:24 12/13/18 16:24 12/13/18 16:24 12/13/18 16:24 - General Appearance General appearance: well-developed, appears stated age EENT: ATNC, PERRL, mucous membranes moist Neck: Present: neck supple Respiratory: Clear to Ascultation Heart: regular, S1S2 Gastrointestinal: Present: normoactive bowel sounds Integumentary: no rash, other (no edema ) Neurologic: no focal deficit, alert and oriented x3, strength 5/5, CN 3-12 intact Psychiatric: mood/affect appropriate, cooperative Additional exam: bilateral nephrostomy tubes in place Results - Lab Results 12/14/18 06:00 12/14/18 06:00 Most recent lab results Calcium 8.3 mg/dL (8.4-10.2) L 12/14/18 06:00 Assessment and Plan - Patient Problems (1) Acute kidney injury Current Visit: Yes Status: Acute Plan to address problem: Acute kidney injury secondary to obstructive nephropathy in the setting of b/l Staghorn calculi. S/p b/l nephrostomy tube placement. follow recommendations regarding management of staghorn calculi. Start IV NS at 75ml/hr. supportive care for LEONOR, avoid nephrotoxins, NSAIDs IV contrast. Will monitor lytes and renal parameters closely and make further recommendations. (2) Hydronephrosis Current Visit: Yes Status: Acute Qualifiers: Hydronephrosis type: unspecified Qualified Code(s): N13.30 - Unspecified hydronephrosis Plan to address problem: s/p b/l nephrostomy placement (3) Nephrolithiasis Current Visit: No Status: Acute Plan to address problem: follows with . (4) Pyelonephritis Current Visit: No Status: Acute Plan to address problem: cont ABXs with levaquin, UCx/Bcx pending
[2018-12-14] MEDS: NORCO 10/325 PO PRN (17:24)
[2018-12-14] MEDS: LOVENOX SUB-Q SCH (20:53)
[2018-12-15] MEDS: LEVAQUIN 500MG/100ML 500 MG/100 ML BAG IV SCH (02:02)
[2018-12-15] MEDS: TYLENOL PO PRN ×3 (02:40→20:33)
[2018-12-15 05:19] LABS: Basophils # (Auto) 0.1 K/mm3 (0.0-0.1); Basophils % (Auto) 0.5 % (0.0-1.8); Eosinophils # (Auto) 0.1 K/mm3 (0.0-0.4); Eosinophils % (Auto) 1.1 % (0.0-4.3); Hematocrit 31.7 % (30.3-42.9); Hemoglobin 10.4 gm/dl (10.1-14.3); Lymphocytes # (Auto) 1.1 K/mm3 (1.2-5.4); Lymphocytes % (Auto) 8.9 % (13.4-35.0); Mean Corpuscular HGB Conc 33 % (30-34); Mean Corpuscular Volume 84 fl (79-97); Monocytes % (Auto) 8.5 % (0.0-7.3); Platelet Count 340 K/mm3 (140-440); Red Blood Count 3.79 M/mm3 (3.65-5.03); Red Cell Distribution Width 18.7 % (13.2-15.2)
[2018-12-15 05:21] LABS: Calcium 8.2 mg/dL (8.4-10.2)
[2018-12-15] MEDS: LOVENOX SUB-Q SCH (10:35)
[2018-12-15] MEDS: ZOFRAN IV PRN (10:35)
[2018-12-15] MEDS: SODIUM CHLORIDE FLUSH SYRINGE 10 ML IV SCH ×2 (10:36→23:43)
[2018-12-15] MEDS: PROTONIX PO SCH (10:36)
--- NOTE | 2018-12-15 10:48 | Progress Note ---
Assessment and Plan Assessment and plan: Bilateral staghorn calculi with obstruction bilaterally - Urologist consulted and stated patient is noncompliant & didn't follow in the office, no aggressive treatment needed - IR consulted and placed bilateral nephrostomy tube Hypokalemia -Corrected LEONOR - nephrology is following UTI - Patient is on antibiotics - Urine culture grew gram negative rods, follow the final result. DVT prophylaxis Disposition; continue inpatient care. Possible DC tomorrow if no fever over the next 24 hours History Interval history: Patient was seen and evaluated this morning. Patient is complaining nausea, and had episodes of fever overnight. Hospitalist Physical - Physical exam Narrative exam: The patient appeared well nourished and normally developed. Vital signs as documented. Head exam is unremarkable. No scleral icterus or corneal arcus noted. Neck is without jugular venous distension, thyromegaly, or carotid bruits. Carotid upstrokes are brisk bilaterally. Lungs are clear to auscultation and percussion. Cardiac exam reveals the PMI to be normally sized and situated. Rhythm is regular. First and second heart sounds normal. No murmurs, rubs or gallops. Abdominal exam reveals normal bowel sounds, no masses, no organomegaly and no aortic enlargement. Extremities are nonedematous and both femoral and pedal pulses are normal. - Constitutional Vitals: Temp Pulse Resp BP Pulse Ox 98.8 F 86 18 92/56 96 12/15/18 08:07 12/15/18 08:07 12/15/18 08:07 12/15/18 08:07 12/15/18 08:07 General appearance: Present: mild distress, well-nourished Results - Labs CBC & Chem 7: 12/15/18 04:42 12/15/18 04:42 Labs: Laboratory Last Values WBC 12.1 K/mm3 (4.5-11.0) H 12/15/18 04:42 RBC 3.79 M/mm3 (3.65-5.03) 12/15/18 04:42 Hgb 10.4 gm/dl (10.1-14.3) 12/15/18 04:42 Hct 31.7 % (30.3-42.9) 12/15/18 04:42 MCV 84 fl (79-97) 12/15/18 04:42 MCH 27 pg (28-32) L 12/15/18 04:42 MCHC 33 % (30-34) 12/15/18 04:42 RDW 18.7 % (13.2-15.2) H 12/15/18 04:42 Plt Count 340 K/mm3 (140-440) 12/15/18 04:42 Lymph % (Auto) 8.9 % (13.4-35.0) L 12/15/18 04:42 [place] % (Auto) 8.5 % (0.0-7.3) H 12/15/18 04:42 Eos % (Auto) 1.1 % (0.0-4.3) 12/15/18 04:42 Baso % (Auto) 0.5 % (0.0-1.8) 12/15/18 04:42 Lymph # 1.1 K/mm3 (1.2-5.4) L 12/15/18 04:42 [place] # 1.0 K/mm3 (0.0-0.8) H 12/15/18 04:42 Eos # 0.1 K/mm3 (0.0-0.4) 12/15/18 04:42 Baso # 0.1 K/mm3 (0.0-0.1) 12/15/18 04:42 Seg Neutrophils % 81.0 % (40.0-70.0) H 12/15/18 04:42 Seg Neutrophils # 9.8 K/mm3 (1.8-7.7) H 12/15/18 04:42 Sodium 133 mmol/L (137-145) L 12/15/18 04:42 Potassium 3.9 mmol/L (3.6-5.0) 12/15/18 04:42 Chloride 102.8 mmol/L (98-107) 12/15/18 04:42 Carbon Dioxide 18 mmol/L (22-30) L 12/15/18 04:42 16 mmol/L 12/15/18 04:42 BUN 20 mg/dL (7-17) H 12/15/18 04:42 1.6 mg/dL (0.7-1.2) H 12/15/18 04:42 Estimated GFR 32 ml/min 12/15/18 04:42 13 % 12/15/18 04:42 Glucose 78 mg/dL (65-100) 12/15/18 04:42 Calcium 8.2 mg/dL (8.4-10.2) L 12/15/18 04:42 0.40 mg/dL (0.1-1.2) 12/13/18 16:48 AST 10 units/L (5-40) 12/13/18 16:48 ALT < 5 units/L (7-56) L 12/13/18 16:48 95 units/L (35-129) 12/13/18 16:48 7.9 g/dL (6.3-8.2) 12/13/18 16:48 3.2 g/dL (3.9-5) L 12/13/18 16:48 0.7 % 12/13/18 16:48 21 units/L (13-60) 12/13/18 16:48 Yellow (Yellow) 12/13/18 21:34 Cloudy (Clear) 12/13/18 21:34 7.0 (5.0-7.0) 12/13/18 21:34 Ur Specific [place] 1.012 (1.003-1.030) 12/13/18 21:34 100 mg/dl mg/dL (Negative) 12/13/18 21:34 Neg mg/dL (Negative) 12/13/18 21:34 Neg mg/dL (Negative) 12/13/18 21:34 Sm (Negative) 12/13/18 21:34 Pos (Negative) 12/13/18 21:34 Neg (Negative) 12/13/18 21:34 < 2.0 mg/dL (<2.0) 12/13/18 21:34 Ur Leukocyte Esterase Lg (Negative) 12/13/18 21:34 > 182.0 /HPF (0.0-6.0) H 12/13/18 21:34 22.0 /HPF (0.0-6.0) 12/13/18 21:34 U Epithel Cells (Auto) 1.0 /HPF (0-13.0) 12/13/18 21:34 2+ /HPF (Negative) 12/13/18 21:34 2+ /HPF 12/13/18 21:34 Active Medications - Current Medications Current Medications: Generic Name Dose Route Start Last Admin Trade Name Freq PRN Reason Stop Dose Admin Acetaminophen 650 mg 12/13/18 23:20 12/15/18 06:32 Tylenol PO 650 mg Q4H PRN Administration Pain MILD(1-3)/Fever >100.5/STEELE Acetaminophen/Hydrocodone Bitart 1 each 12/13/18 23:20 12/14/18 17:24 [place] 10/325 PO 1 each Q4H PRN Administration Pain , Severe (7-10) Enoxaparin Sodium 40 mg 12/14/18 10:00 12/15/18 10:35 Lovenox SUB-Q 40 mg QDAY COLBY Administration Sodium Chloride 1,000 mls @ 75 mls/hr 12/13/18 23:45 12/13/18 23:42 Nacl 0.45% 1000 Ml IV 75 mls/hr DIRECT COLBY Administration Levofloxacin/Dextrose 250 mg in 50 mls @ 50 mls/hr 12/16/18 10:00 Levaquin 250mg/50ml IV Q24HR COLBY Morphine Sulfate 4 mg 12/13/18 23:20 Morphine IV Q4H PRN Pain, Moderate (4-6) Ondansetron HCl 4 mg 12/13/18 23:20 12/15/18 10:35 Zofran IV 4 mg Q8H PRN Administration Nausea And Vomiting Pantoprazole Sodium 40 mg 12/14/18 10:00 12/15/18 10:36 Protonix PO 40 mg QDAY COLBY Administration Promethazine HCl 25 mg 12/13/18 23:20 Phenergan AR Q6H PRN N/V IF NPO AND NO IV ACCESS Sodium Chloride 10 ml 12/14/18 10:00 12/15/18 10:36 Sodium Chloride Flush Syringe 10 Ml IV 10 ml BID COLBY Administration Nutrition/Malnutrition Assess - Dietary Evaluation Nutrition/Malnutrition Findings: Nutrition Notes Start: 12/14/18 10:49 Freq: Status: Active Protocol: Document 12/14/18 10:56 LP (Rec: 12/14/18 11:39 LP [id number]) Nutrition Notes Need for Assessment generated from: MST Initial or Follow up Assessment Current Diagnosis COPD,Malnutrition Other Pertinent Diagnosis Nephrolithiasis; Kidney Stones Current Diet NPO Labs/Tests BUN 21 Creat 1.7 Pertinent Medications Zofran Levofloxacin Height 5 ft 7 in Weight 51.7 kg Usual Body Weight 72.72 kg [place] Body Weight (kg) 61.36 BMI 17.8 Intake Prior to Admission Fair Weight change and time frame 14-23 lbs wt. loss w/out trying Weight Status Underweight Subjective/Other Information Consultation for MST Score of 3. 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 Pt. was unsure of actual amount of wt. loss. NKFA Pt. would like ONS. Burn Absent Trauma Absent GI Symptoms Nausea,Vomiting Food Allergy No Current % PO Negligible Minimum of two criteria Yes Interpretation of Weight Loss (severe) >7.5% in 3 months Body Fat Depletion Mild depletion (non-severe) Muscle Mass Mild Depletion (non-severe) #1 Nutrition Diagnosis Malnutrition Etiology decreased appetite and COPD As Evidenced by Signs and Symptoms temporal wasting and estimated percent wt. loss of 29% in unknown timeframe, poor appetite Is patient on ventilator? No Is Patient Ambulatory and/or Out of Bed No REE-([facility]-confined to bed) 1319.172 Calculation Used for Recommendations [facility] Additional Notes add 500 kcal for malnourishment to total to 1820 kcals/day PRO needs: 62g (1.2-1.5 g/kg ABW) Fluid needs: 1820 mL (1 mL/ kcal) Nutrition Intervention Change Diet Order: Advanced to regular diet Add Supplement/Snack (indicate name/kcal Nepro (425 kcal, 19.1 g PRO) /protein ) BID Vanilla Provides kCal: 850 Provides Protein (gm) 38 Goal #1 Meet at least 80% of kcal and PRO needs. Goal #2 weight gain/maintenance Anticipated Discharge Needs: Regular Diet with Nepro BID Follow-Up By: 12/17/18 Additional Comments F/U for intakes
--- NOTE | 2018-12-15 11:35 | Progress Note ---
Assessment and Plan - Patient Problems (1) Acute kidney injury Current Visit: Yes Status: Acute Plan to address problem: Acute kidney injury secondary to obstructive nephropathy in the setting of b/l Staghorn calculi. S/p b/l nephrostomy tube placement. follow recommendations regarding management of staghorn calculi. cont IV NS at 75ml/hr. supportive care for LEONOR, avoid nephrotoxins, NSAIDs IV contrast. Will monitor lytes and renal parameters closely and make further recommendations. (2) Hydronephrosis Current Visit: Yes Status: Acute Qualifiers: Hydronephrosis type: unspecified Qualified Code(s): N13.30 - Unspecified hydronephrosis Plan to address problem: s/p b/l nephrostomy placement (3) Nephrolithiasis Current Visit: No Status: Acute Plan to address problem: follows with . (4) Pyelonephritis Current Visit: No Status: Acute Plan to address problem: cont ABXs with levaquin, UCx/Bcx pending Subjective Date of service: 12/15/18 Principal diagnosis: LEONOR Interval history: Pt awake, alert, denies fever, chills, n/v/d Objective - Vital Signs Vital signs: Vital Signs - 12hr 12/15/18 12/15/18 12/15/18 00:23 02:37 04:02 Temperature 101.1 F H 101.1 F H Pulse Rate 89 Respiratory 18 Rate Blood Pressure Blood Pressure 140/65 107/62 [Left] O2 Sat by Pulse 98 Oximetry 12/15/18 12/15/18 06:08 08:07 Temperature 100.7 F H 98.8 F Pulse Rate 86 Respiratory 18 Rate Blood Pressure 92/56 Blood Pressure [Left] O2 Sat by Pulse 96 Oximetry - General Appearance General appearance: well-developed, appears stated age EENT: ATNC, PERRL, mucous membranes moist Neck: no JVD Respiratory: Present: Clear to Ascultation Cardiology: regular, S1S2 Gastrointestinal: normoactive bowel sounds Integumentary: no rash, other (no edema ) Neurologic: no focal deficit, alert and oriented x3, strength 5/5, CN 3-12 intact Psychiatric: mood/affect appropriate, cooperative - Lab 12/15/18 04:42 12/15/18 04:42 Most recent lab results Calcium 8.2 mg/dL (8.4-10.2) L 12/15/18 04:42 Medications & Allergies - Medications Allergies/Adverse Reactions: Allergies No Known Allergies Allergy (Verified 06/15/17 21:08) Active Medications: Generic Name Dose Route Start Last Admin Trade Name Freq PRN Reason Stop Dose Admin Acetaminophen 650 mg 12/13/18 23:20 12/15/18 06:32 Tylenol PO 650 mg Q4H PRN Administration Pain MILD(1-3)/Fever >100.5/STEELE Acetaminophen/Hydrocodone Bitart 1 each 12/13/18 23:20 12/14/18 17:24 [place] 10/325 PO 1 each Q4H PRN Administration Pain , Severe (7-10) Enoxaparin Sodium 30 mg 12/16/18 10:00 Lovenox SUB-Q QDAY COLBY Sodium Chloride 1,000 mls @ 75 mls/hr 12/13/18 23:45 12/13/18 23:42 Nacl 0.45% 1000 Ml IV 75 mls/hr DIRECT COLBY Administration Levofloxacin/Dextrose 250 mg in 50 mls @ 50 mls/hr 12/16/18 10:00 Levaquin 250mg/50ml IV Q24HR COLBY Morphine Sulfate 4 mg 12/13/18 23:20 Morphine IV Q4H PRN Pain, Moderate (4-6) Ondansetron HCl 4 mg 12/13/18 23:20 12/15/18 10:35 Zofran IV 4 mg Q8H PRN Administration Nausea And Vomiting Pantoprazole Sodium 40 mg 12/14/18 10:00 12/15/18 10:36 Protonix PO 40 mg QDAY COLBY Administration Promethazine HCl 25 mg 12/13/18 23:20 Phenergan [place] Q6H PRN N/V IF NPO AND NO IV ACCESS Sodium Chloride 10 ml 12/14/18 10:00 12/15/18 10:36 Sodium Chloride Flush Syringe 10 Ml IV 10 ml BID COLBY Administration
[2018-12-15] MEDS: NACL 0.45% 1000 ML 1,000 ML IV SCH (13:41)
[2018-12-16 04:43] LABS: Basophils # (Auto) 0.1 K/mm3 (0.0-0.1); Basophils % (Auto) 0.8 % (0.0-1.8); Eosinophils # (Auto) 0.4 K/mm3 (0.0-0.4); Eosinophils % (Auto) 3.6 % (0.0-4.3); Hematocrit 31.6 % (30.3-42.9); Hemoglobin 10.5 gm/dl (10.1-14.3); Lymphocytes # (Auto) 1.6 K/mm3 (1.2-5.4); Lymphocytes % (Auto) 16.3 % (13.4-35.0); Mean Corpuscular HGB Conc 33 % (30-34); Mean Corpuscular Volume 84 fl (79-97); Monocytes # (Auto) 0.9 K/mm3 (0.0-0.8); Platelet Count 337 K/mm3 (140-440); Red Blood Count 3.78 M/mm3 (3.65-5.03); Red Cell Distribution Width 18.5 % (13.2-15.2)
[2018-12-16 04:52] LABS: Calcium 8.2 mg/dL (8.4-10.2)
[2018-12-16] MEDS: LOVENOX SUB-Q SCH (09:48)
[2018-12-16] MEDS: LEVAQUIN 250MG/50ML 250 MG/50 ML BAG IV SCH (09:48)
[2018-12-16] MEDS: SODIUM CHLORIDE FLUSH SYRINGE 10 ML IV SCH ×2 (09:48→22:50)
[2018-12-16] MEDS: PROTONIX PO SCH (09:48)
--- NOTE | 2018-12-16 10:33 | Progress Note ---
Assessment and Plan - Patient Problems (1) Acute kidney injury Current Visit: Yes Status: Acute Plan to address problem: Acute kidney injury secondary to obstructive nephropathy in the setting of b/l Staghorn calculi. S/p b/l nephrostomy tube placement. follow recommendations regarding management of staghorn calculi. cont IV NS at 75ml/hr. supportive care for LEONOR, avoid nephrotoxins, NSAIDs IV contrast. Will monitor lytes and renal parameters closely and make further recommendations. (2) Hydronephrosis Current Visit: Yes Status: Acute Qualifiers: Hydronephrosis type: unspecified Qualified Code(s): N13.30 - Unspecified hydronephrosis Plan to address problem: s/p b/l nephrostomy placement (3) Nephrolithiasis Current Visit: No Status: Acute Plan to address problem: follows with . (4) Pyelonephritis Current Visit: No Status: Acute Plan to address problem: cont ABXs with levaquin, UCx positive for Proteus Mirabilis sensitive to levaquin Subjective Date of service: 12/16/18 Principal diagnosis: LEONOR Interval history: Pt awake, alert, denies fever, chills, n/v/d Objective - Vital Signs Vital signs: Vital Signs - 12hr 12/16/18 02:12 Temperature 98.3 F Pulse Rate 68 Respiratory 18 Rate Blood Pressure 95/56 O2 Sat by Pulse 97 Oximetry - General Appearance General appearance: well-developed, appears stated age, frail EENT: ATNC, PERRL, mucous membranes moist Neck: no JVD Respiratory: Present: Clear to Ascultation Cardiology: regular, S1S2 Gastrointestinal: normoactive bowel sounds Integumentary: no rash, other (no edema ) Neurologic: no focal deficit, alert and oriented x3, strength 5/5, CN 3-12 intact Psychiatric: mood/affect appropriate, cooperative - Lab 12/16/18 04:24 12/16/18 04:24 Most recent lab results Calcium 8.2 mg/dL (8.4-10.2) L 12/16/18 04:24 Medications & Allergies - Medications Allergies/Adverse Reactions: Allergies No Known Allergies Allergy (Verified 06/15/17 21:08) Home Medications: Home Medications Medication Instructions Recorded Confirmed Last Taken Type No Known Home Medications [No 12/16/18 12/16/18 Unknown History Reported Home Medications] Active Medications: Generic Name Dose Route Start Last Admin Trade Name Freq PRN Reason Stop Dose Admin Acetaminophen 650 mg 12/13/18 23:20 12/15/18 20:33 Tylenol PO 650 mg Q4H PRN Administration Pain MILD(1-3)/Fever >100.5/STEELE Acetaminophen/Hydrocodone Bitart 1 each 12/13/18 23:20 12/14/18 17:24 [place] 10/325 PO 1 each Q4H PRN Administration Pain , Severe (7-10) Enoxaparin Sodium 30 mg 12/16/18 10:00 12/16/18 09:48 Lovenox SUB-Q 30 mg QDAY COLBY Administration Sodium Chloride 1,000 mls @ 75 mls/hr 12/13/18 23:45 12/15/18 13:41 Nacl 0.45% 1000 Ml IV 75 mls/hr DIRECT COLBY Administration Levofloxacin/Dextrose 250 mg in 50 mls @ 50 mls/hr 12/16/18 10:00 12/16/18 09:48 Levaquin 250mg/50ml IV 50 mls/hr Q24HR COLBY Administration Morphine Sulfate 4 mg 12/13/18 23:20 Morphine IV Q4H PRN Pain, Moderate (4-6) Ondansetron HCl 4 mg 12/13/18 23:20 12/15/18 10:35 Zofran IV 4 mg Q8H PRN Administration Nausea And Vomiting Pantoprazole Sodium 40 mg 12/14/18 10:00 12/16/18 09:48 Protonix PO 40 mg QDAY COLBY Administration Promethazine HCl 25 mg 12/13/18 23:20 Phenergan [place] Q6H PRN N/V IF NPO AND NO IV ACCESS Sodium Chloride 10 ml 12/14/18 10:00 12/16/18 09:48 Sodium Chloride Flush Syringe 10 Ml IV 10 ml BID COLBY Administration
--- NOTE | 2018-12-16 13:34 | Progress Note ---
Assessment and Plan Assessment and plan: still spiking fever, obtain repeat CT and cxr Bilateral staghorn calculi with obstruction bilaterally - Urologist consulted and stated patient is noncompliant & didn't follow in the office, no aggressive treatment needed - IR consulted and will do procedure today Hypokalemia -Corrected UTI - Patient is on antibiotics - Urine culture pending DVT prophylaxis Disposition; continue inpatient care. Hospitalist Physical - Constitutional Vitals: Temp Pulse Resp BP Pulse Ox 97.9 F 78 18 124/67 97 12/16/18 07:26 12/16/18 07:26 12/16/18 07:26 12/16/18 07:26 12/16/18 07:26 General appearance: Present: mild distress, well-nourished Results - Labs CBC & Chem 7: 12/16/18 04:24 12/16/18 04:24 Labs: Laboratory Last Values WBC 9.8 K/mm3 (4.5-11.0) 12/16/18 04:24 RBC 3.78 M/mm3 (3.65-5.03) 12/16/18 04:24 Hgb 10.5 gm/dl (10.1-14.3) 12/16/18 04:24 Hct 31.6 % (30.3-42.9) 12/16/18 04:24 MCV 84 fl (79-97) 12/16/18 04:24 MCH 28 pg (28-32) 12/16/18 04:24 MCHC 33 % (30-34) 12/16/18 04:24 RDW 18.5 % (13.2-15.2) H 12/16/18 04:24 Plt Count 337 K/mm3 (140-440) 12/16/18 04:24 Lymph % (Auto) 16.3 % (13.4-35.0) 12/16/18 04:24 [place] % (Auto) 9.0 % (0.0-7.3) H 12/16/18 04:24 Eos % (Auto) 3.6 % (0.0-4.3) 12/16/18 04:24 Baso % (Auto) 0.8 % (0.0-1.8) 12/16/18 04:24 Lymph # 1.6 K/mm3 (1.2-5.4) 12/16/18 04:24 [place] # 0.9 K/mm3 (0.0-0.8) H 12/16/18 04:24 Eos # 0.4 K/mm3 (0.0-0.4) 12/16/18 04:24 Baso # 0.1 K/mm3 (0.0-0.1) 12/16/18 04:24 Seg Neutrophils % 70.3 % (40.0-70.0) H 12/16/18 04:24 Seg Neutrophils # 6.9 K/mm3 (1.8-7.7) 12/16/18 04:24 Sodium 136 mmol/L (137-145) L 12/16/18 04:24 Potassium 4.2 mmol/L (3.6-5.0) 12/16/18 04:24 Chloride 106.2 mmol/L (98-107) 12/16/18 04:24 Carbon Dioxide 21 mmol/L (22-30) L 12/16/18 04:24 13 mmol/L 12/16/18 04:24 BUN 16 mg/dL (7-17) 12/16/18 04:24 1.7 mg/dL (0.7-1.2) H 12/16/18 04:24 Estimated GFR 30 ml/min 12/16/18 04:24 9 % 12/16/18 04:24 Glucose 79 mg/dL (65-100) 12/16/18 04:24 Calcium 8.2 mg/dL (8.4-10.2) L 12/16/18 04:24 0.40 mg/dL (0.1-1.2) 12/13/18 16:48 AST 10 units/L (5-40) 12/13/18 16:48 ALT < 5 units/L (7-56) L 12/13/18 16:48 95 units/L (35-129) 12/13/18 16:48 7.9 g/dL (6.3-8.2) 12/13/18 16:48 3.2 g/dL (3.9-5) L 12/13/18 16:48 0.7 % 12/13/18 16:48 21 units/L (13-60) 12/13/18 16:48 Yellow (Yellow) 12/13/18 21:34 Cloudy (Clear) 12/13/18 21:34 7.0 (5.0-7.0) 12/13/18 21:34 Ur Specific [place] 1.012 (1.003-1.030) 12/13/18 21:34 100 mg/dl mg/dL (Negative) 12/13/18 21:34 Neg mg/dL (Negative) 12/13/18 21:34 Neg mg/dL (Negative) 12/13/18 21:34 Sm (Negative) 12/13/18 21:34 Pos (Negative) 12/13/18 21:34 Neg (Negative) 12/13/18 21:34 < 2.0 mg/dL (<2.0) 12/13/18 21:34 Ur Leukocyte Esterase Lg (Negative) 12/13/18 21:34 > 182.0 /HPF (0.0-6.0) H 12/13/18 21:34 22.0 /HPF (0.0-6.0) 12/13/18 21:34 U Epithel Cells (Auto) 1.0 /HPF (0-13.0) 12/13/18 21:34 2+ /HPF (Negative) 12/13/18 21:34 2+ /HPF 12/13/18 21:34 Active Medications - Current Medications Current Medications: Generic Name Dose Route Start Last Admin Trade Name Freq PRN Reason Stop Dose Admin Acetaminophen 650 mg 12/13/18 23:20 12/15/18 20:33 Tylenol PO 650 mg Q4H PRN Administration Pain MILD(1-3)/Fever >100.5/STEELE Acetaminophen/Hydrocodone Bitart 1 each 12/13/18 23:20 12/14/18 17:24 [place] 10/325 PO 1 each Q4H PRN Administration Pain , Severe (7-10) Enoxaparin Sodium 30 mg 12/16/18 10:00 12/16/18 09:48 Lovenox SUB-Q 30 mg QDAY COLBY Administration Sodium Chloride 1,000 mls @ 75 mls/hr 12/13/18 23:45 12/15/18 13:41 Nacl 0.45% 1000 Ml IV 75 mls/hr DIRECT COLBY Administration Levofloxacin/Dextrose 250 mg in 50 mls @ 50 mls/hr 12/16/18 10:00 12/16/18 09:48 Levaquin 250mg/50ml IV 50 mls/hr Q24HR COLBY Administration Morphine Sulfate 4 mg 12/13/18 23:20 Morphine IV Q4H PRN Pain, Moderate (4-6) Ondansetron HCl 4 mg 12/13/18 23:20 12/15/18 10:35 Zofran IV 4 mg Q8H PRN Administration Nausea And Vomiting Pantoprazole Sodium 40 mg 12/14/18 10:00 12/16/18 09:48 Protonix PO 40 mg QDAY COLBY Administration Promethazine HCl 25 mg 12/13/18 23:20 Phenergan [place] Q6H PRN N/V IF NPO AND NO IV ACCESS Sodium Chloride 10 ml 12/14/18 10:00 12/16/18 09:48 Sodium Chloride Flush Syringe 10 Ml IV 10 ml BID COLBY Administration Nutrition/Malnutrition Assess - Dietary Evaluation Nutrition/Malnutrition Findings: Nutrition Notes Start: 12/14/18 1 0:49 Freq: Status: Active Protocol: Document 12/14/18 10:56 LP (Rec: 12/14/18 11:39 LP [id number]) Nutrition Notes Need for Assessment generated from: MST Initial or Follow up Assessment Current Diagnosis COPD,Malnutrition Other Pertinent Diagnosis Nephrolithiasis; Kidney Stones Current Diet NPO Labs/Tests BUN 21 Creat 1.7 Pertinent Medications Zofran Levofloxacin Height 5 ft 7 in Weight 51.7 kg Usual Body Weight 72.72 kg [place] Body Weight (kg) 61.36 BMI 17.8 Intake Prior to Admission Fair Weight change and time frame 14-23 lbs wt. loss w/out trying Weight Status Underweight Subjective/Other Information Consultation for MST Score of 3. 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 Pt. was unsure of actual amount of wt. loss. NKFA Pt. would like ONS. Burn Absent Trauma Absent GI Symptoms Nausea,Vomiting Food Allergy No Current % PO Negligible Minimum of two criteria Yes Interpretation of Weight Loss (severe) >7.5% in 3 months Body Fat Depletion Mild depletion (non-severe) Muscle Mass Mild Depletion (non-severe) #1 Nutrition Diagnosis Malnutrition Etiology decreased appetite and COPD As Evidenced by Signs and Symptoms temporal wasting and estimated percent wt. loss of 29% in unknown timeframe, poor appetite Is patient on ventilator? No Is Patient Ambulatory and/or Out of Bed No REE-([place]-confined to bed) 1319.172 Calculation Used for Recommendations [place] Additional Notes add 500 kcal for malnourishment to total to 1820 kcals/day PRO needs: 62g (1.2-1.5 g/kg ABW) Fluid needs: 1820 mL (1 mL/ kcal) Nutrition Intervention Change Diet Order: Advanced to regular diet Add Supplement/Snack (indicate name/kcal Nepro (425 kcal, 19.1 g PRO) /protein ) BID Vanilla Provides kCal: 850 Provides Protein (gm) 38 Goal #1 Meet at least 80% of kcal and PRO needs. Goal #2 weight gain/maintenance Anticipated Discharge Needs: Regular Diet with Nepro BID Follow-Up By: 12/17/18 Additional Comments F/U for intakes
--- NOTE | 2018-12-16 14:17 | XRay Report ---
CHEST 1 VIEW INDICATION: fever. COMPARISON: None FINDINGS: SUPPORT DEVICES: None. HEART / MEDIASTINUM: No significant abnormality. LUNGS / PLEURA: No significant pulmonary or pleural abnormality. No pneumothorax. ADDITIONAL FINDINGS: Hiatal hernia is present. Bilateral nephrostomy catheters in place IMPRESSION: 1. No acute findings. Signer Name: Tim Dennis MD Signed: 12/16/2018 2:12 PM Workstation Name: [id number]
--- NOTE | 2018-12-16 15:40 | Cat Scan Report ---
CT abdomen pelvis wo con INDICATION: urinary obstruction, stone. TECHNIQUE: All CT scans at this location are performed using CT dose reduction for ALARA by means of automated e xposure control. COMPARISON: 12/13/2018 FINDINGS: No acute disease in the lung bases. Large hiatal hernia. Liver, gallbladder, spleen and pancreas are negative on this noncontrast study. Since the exam 3 days ago, bilateral nephrostomy tubes have been placed. Both are positioned in the r enal pelvis. Large renal calculi are again demonstrated, but bilateral hydronephrosis has resolved. Pelvis Dense fecal material is again demonstrated throughout the colon, including the rectum. No free fluid or inflammation. IMPRESSION: 1. Bilateral external nephrostomy tubes have been placed since the exam 3 days ago. Bilateral hydrone phrosis is resolved. There is actually very little residual right renal cortex. Signer Name: Tolu Castanon MD Signed: 12/16/2018 3:36 PM Workstation Name: [id number]
[2018-12-16] MEDS: NACL 0.45% 1000 ML 1,000 ML IV SCH (16:48)
[2018-12-17] MEDS: NORCO 10/325 PO PRN (00:02)
[2018-12-17] MEDS: NACL 0.45% 1000 ML 1,000 ML IV SCH ×2 (05:24→23:02)
[2018-12-17] MEDS: ZOFRAN IV PRN ×2 (08:42→21:47)
[2018-12-17] MEDS: LEVAQUIN 250MG/50ML 250 MG/50 ML BAG IV SCH (09:42)
[2018-12-17] MEDS: PROTONIX PO SCH (09:43)
[2018-12-17] MEDS: LOVENOX SUB-Q SCH (09:43)
[2018-12-17] MEDS: SODIUM CHLORIDE FLUSH SYRINGE 10 ML IV SCH ×2 (09:44→21:48)
--- NOTE | 2018-12-17 11:23 | Progress Note ---
Assessment and Plan - Patient Problems (1) Acute kidney injury Current Visit: Yes Status: Acute Plan to address problem: Acute kidney injury possibly superimposed on chronic kidney disease. Kidney disease secondary to obstructive uropathy secondary to staghorn calculus and Pyelonephritis. Kidney function is not significantly changed. Follow up electrolytes and renal function (2) Hydronephrosis Current Visit: Yes Status: Acute Qualifiers: Hydronephrosis type: unspecified Qualified Code(s): N13.30 - Unspecified hydronephrosis Plan to address problem: S/p bilateral percutaneous nephrostomy tubes per urology. Follow-up by urologist (3) Nephrolithiasis Current Visit: No Status: Acute Plan to address problem: Staghorn calculus. Management by urologist. (4) Pyelonephritis Current Visit: No Status: Acute Plan to address problem: Continue antibiotics appropriately adjusted to the degree of renal function. Subjective Date of service: 12/17/18 Principal diagnosis: LEONOR Interval history: Patient seen lying in bed. She has no new complaints. Had some nausea but no vomiting. Objective - Exam Narrative Exam: Frail elderly female lying in bed in no acute distress HEENT: NCAT, pink oral mucous membrane Neck: Supple, no venous distention CVS: S1S2 RRR with no murmur, rub or gallop Chest: Clear to auscultation Abdomen: Protuberant, soft, nontender, no organomegaly, bowel sounds are present Extremities: No edema Neuro: Awake, alert no focal deficits - Vital Signs Vital signs: Vital Signs - 12hr 12/16/18 12/17/18 12/17/18 23:49 02:34 07:41 Temperature 97.7 F 97.9 F Pulse Rate 67 67 62 Respiratory 18 18 Rate Blood Pressure 101/57 115/64 O2 Sat by Pulse 94 96 Oximetry - Lab 12/16/18 04:24 12/16/18 04:24 Most recent lab results Calcium 8.2 mg/dL (8.4-10.2) L 12/16/18 04:24 Medications & Allergies - Medications Allergies/Adverse Reactions: Allergies No Known Allergies Allergy (Verified 06/15/17 21:08) Home Medications: Home Medications Medication Instructions Recorded Confirmed Last Taken Type No Known Home Medications [No 12/16/18 12/16/18 Unknown History Reported Home Medications] Active Medications: Generic Name Dose Route Start Last Admin Trade Name Freq PRN Reason Stop Dose Admin Acetaminophen 650 mg 12/13/18 23:20 12/15/18 20:33 Tylenol PO 650 mg Q4H PRN Administration Pain MILD(1-3)/Fever >100.5/STEELE Acetaminophen/Hydrocodone Bitart 1 each 12/13/18 23:20 12/17/18 00:02 [place] 10/325 PO 1 each Q4H PRN Administration Pain , Severe (7-10) Enoxaparin Sodium 30 mg 12/16/18 10:00 12/17/18 09:43 Lovenox SUB-Q 30 mg QDAY COLBY Administration Sodium Chloride 1,000 mls @ 75 mls/hr 12/13/18 23:45 12/17/18 05:24 Nacl 0.45% 1000 Ml IV 75 mls/hr DIRECT COLBY Administration Levofloxacin/Dextrose 250 mg in 50 mls @ 50 mls/hr 12/16/18 10:00 12/17/18 09:42 Levaquin 250mg/50ml IV 50 mls/hr Q24HR COLBY Administration Morphine Sulfate 4 mg 12/13/18 23:20 Morphine IV Q4H PRN Pain, Moderate (4-6) Ondansetron HCl 4 mg 12/13/18 23:20 12/17/18 08:42 Zofran IV 4 mg Q8H PRN Administration Nausea And Vomiting Pantoprazole Sodium 40 mg 12/14/18 10:00 12/17/18 09:43 Protonix PO 40 mg QDAY COLBY Administration Promethazine HCl 25 mg 12/13/18 23:20 Phenergan [place] Q6H PRN N/V IF NPO AND NO IV ACCESS Sodium Chloride 10 ml 12/14/18 10:00 12/17/18 09:44 Sodium Chloride Flush Syringe 10 Ml IV 10 ml BID COLBY Administration
--- NOTE | 2018-12-17 11:44 | Progress Note ---
Assessment and Plan Assessment and plan: still spiking fever, obtain repeat CT and cxr Bilateral staghorn calculi with obstruction bilaterally - Urologist consulted and stated patient is noncompliant & didn't follow in the office, no aggressive treatment needed - IR consulted and will do procedure today Hypokalemia -Corrected UTI - Patient is on antibiotics - Urine culture pending DVT prophylaxis Disposition; continue inpatient care. Hospitalist Physical - Constitutional Vitals: Temp Pulse Resp BP Pulse Ox 97.9 F 62 18 115/64 96 12/17/18 07:41 12/17/18 07:41 12/17/18 07:41 12/17/18 07:41 12/17/18 07:41 General appearance: Present: mild distress, well-nourished Results - Labs CBC & Chem 7: 12/16/18 04:24 12/16/18 04:24 Labs: Laboratory Last Values WBC 9.8 K/mm3 (4.5-11.0) 12/16/18 04:24 RBC 3.78 M/mm3 (3.65-5.03) 12/16/18 04:24 Hgb 10.5 gm/dl (10.1-14.3) 12/16/18 04:24 Hct 31.6 % (30.3-42.9) 12/16/18 04:24 MCV 84 fl (79-97) 12/16/18 04:24 MCH 28 pg (28-32) 12/16/18 04:24 MCHC 33 % (30-34) 12/16/18 04:24 RDW 18.5 % (13.2-15.2) H 12/16/18 04:24 Plt Count 337 K/mm3 (140-440) 12/16/18 04:24 Lymph % (Auto) 16.3 % (13.4-35.0) 12/16/18 04:24 [place] % (Auto) 9.0 % (0.0-7.3) H 12/16/18 04:24 Eos % (Auto) 3.6 % (0.0-4.3) 12/16/18 04:24 Baso % (Auto) 0.8 % (0.0-1.8) 12/16/18 04:24 Lymph # 1.6 K/mm3 (1.2-5.4) 12/16/18 04:24 [place]ukes # 0.9 K/mm3 (0.0-0.8) H 12/16/18 04:24 Eos # 0.4 K/mm3 (0.0-0.4) 12/16/18 04:24 Baso # 0.1 K/mm3 (0.0-0.1) 12/16/18 04:24 Seg Neutrophils % 70.3 % (40.0-70.0) H 12/16/18 04:24 Seg Neutrophils # 6.9 K/mm3 (1.8-7.7) 12/16/18 04:24 Sodium 136 mmol/L (137-145) L 12/16/18 04:24 Potassium 4.2 mmol/L (3.6-5.0) 12/16/18 04:24 Chloride 106.2 mmol/L (98-107) 12/16/18 04:24 Carbon Dioxide 21 mmol/L (22-30) L 12/16/18 04:24 13 mmol/L 12/16/18 04:24 BUN 16 mg/dL (7-17) 12/16/18 04:24 1.7 mg/dL (0.7-1.2) H 12/16/18 04:24 Estimated GFR 30 ml/min 12/16/18 04:24 9 % 12/16/18 04:24 Glucose 79 mg/dL (65-100) 12/16/18 04:24 Calcium 8.2 mg/dL (8.4-10.2) L 12/16/18 04:24 0.40 mg/dL (0.1-1.2) 12/13/18 16:48 AST 10 units/L (5-40) 12/13/18 16:48 ALT < 5 units/L (7-56) L 12/13/18 16:48 95 units/L (35-129) 12/13/18 16:48 7.9 g/dL (6.3-8.2) 12/13/18 16:48 3.2 g/dL (3.9-5) L 12/13/18 16:48 0.7 % 12/13/18 16:48 21 units/L (13-60) 12/13/18 16:48 Yellow (Yellow) 12/13/18 21:34 Cloudy (Clear) 12/13/18 21:34 7.0 (5.0-7.0) 12/13/18 21:34 Ur Specific [place] 1.012 (1.003-1.030) 12/13/18 21:34 100 mg/dl mg/dL (Negative) 12/13/18 21:34 Neg mg/dL (Negative) 12/13/18 21:34 Neg mg/dL (Negative) 12/13/18 21:34 Sm (Negative) 12/13/18 21:34 Pos (Negative) 12/13/18 21:34 Neg (Negative) 12/13/18 21:34 < 2.0 mg/dL (<2.0) 12/13/18 21:34 Ur Leukocyte Esterase Lg (Negative) 12/13/18 21:34 > 182.0 /HPF (0.0-6.0) H 12/13/18 21:34 22.0 /HPF (0.0-6.0) 12/13/18 21:34 U Epithel Cells (Auto) 1.0 /HPF (0-13.0) 12/13/18 21:34 2+ /HPF (Negative) 12/13/18 21:34 2+ /HPF 12/13/18 21:34 Active Medications - Current Medications Current Medications: Generic Name Dose Route Start Last Admin Trade Name Freq PRN Reason Stop Dose Admin Acetaminophen 650 mg 12/13/18 23:20 12/15/18 20:33 Tylenol PO 650 mg Q4H PRN Administration Pain MILD(1-3)/Fever >100.5/STEELE Acetaminophen/Hydrocodone Bitart 1 each 12/13/18 23:20 12/17/18 00:02 [place] 10/325 PO 1 each Q4H PRN Administration Pain , Severe (7-10) Enoxaparin Sodium 30 mg 12/16/18 10:00 12/17/18 09:43 Lovenox SUB-Q 30 mg QDAY COLBY Administration Sodium Chloride 1,000 mls @ 75 mls/hr 12/13/18 23:45 12/17/18 05:24 Nacl 0.45% 1000 Ml IV 75 mls/hr DIRECT COLBY Administration Levofloxacin/Dextrose 250 mg in 50 mls @ 50 mls/hr 12/16/18 10:00 12/17/18 09:42 Levaquin 250mg/50ml IV 50 mls/hr Q24HR COLBY Administration Morphine Sulfate 4 mg 12/13/18 23:20 Morphine IV Q4H PRN Pain, Moderate (4-6) Ondansetron HCl 4 mg 12/13/18 23:20 12/17/18 08:42 Zofran IV 4 mg Q8H PRN Administration Nausea And Vomiting Pantoprazole Sodium 40 mg 12/14/18 10:00 12/17/18 09:43 Protonix PO 40 mg QDAY COLBY Administration Promethazine HCl 25 mg 12/13/18 23:20 Phenergan [place] Q6H PRN N/V IF NPO AND NO IV ACCESS Sodium Chloride 10 ml 12/14/18 10:00 12/17/18 09:44 Sodium Chloride Flush Syringe 10 Ml IV 10 ml BID COLBY Administration Nutrition/Malnutrition Assess - Dietary Evaluation Nutrition/Malnutrition Findings: Nutrition Notes Start: 12/14/18 1 0:49 Freq: Status: Active Protocol: Document 12/14/18 10:56 LP (Rec: 12/14/18 11:39 LP [id number]) Nutrition Notes Need for Assessment generated from: MST Initial or Follow up Assessment Current Diagnosis COPD,Malnutrition Other Pertinent Diagnosis Nephrolithiasis; Kidney Stones Current Diet NPO Labs/Tests BUN 21 Creat 1.7 Pertinent Medications Zofran Levofloxacin Height 5 ft 7 in Weight 51.7 kg Usual Body Weight 72.72 kg [place] Body Weight (kg) 61.36 BMI 17.8 Intake Prior to Admission Fair Weight change and time frame 14-23 lbs wt. loss w/out trying Weight Status Underweight Subjective/Other Information Consultation for MST Score of 3. Pt. states she was eating well [employer], but she feels the weight loss. Pt. was unsure of actual amount of wt. loss. NKFA Pt. would like ONS. Burn Absent Trauma Absent GI Symptoms Nausea,Vomiting Food Allergy No Current % PO Negligible Minimum of two criteria Yes Interpretation of Weight Loss (severe) >7.5% in 3 months Body Fat Depletion Mild depletion (non-severe) Muscle Mass Mild Depletion (non-severe) #1 Nutrition Diagnosis Malnutrition Etiology decreased appetite and COPD As Evidenced by Signs and Symptoms temporal wasting and estimated percent wt. loss of 29% in unknown timeframe, poor appetite Is patient on ventilator? No Is Patient Ambulatory and/or Out of Bed No REE-([place]-St. Jeor-confined to bed) 1319.172 Calculation Used for Recommendations [place]-St Jeor Additional Notes add 500 kcal for malnourishment to total to 1820 kcals/day PRO needs: 62g (1.2-1.5 g/kg ABW) Fluid needs: 1820 mL (1 mL/ kcal) Nutrition Intervention Change Diet Order: Advanced to regular diet Add Supplement/Snack (indicate name/kcal Nepro (425 kcal, 19.1 g PRO) /protein ) BID Vanilla Provides kCal: 850 Provides Protein (gm) 38 Goal #1 Meet at least 80% of kcal and PRO needs. Goal #2 weight gain/maintenance Anticipated Discharge Needs: Regular Diet with Nepro BID Follow-Up By: 12/17/18 Additional Comments F/U for intakes
--- NOTE | 2018-12-17 13:56 | Progress Note ---
Assessment and Plan 63 year old female status post bilateral nephrostomy tubes without evidence of complication on CT or on exam. Needs to followup with urology for definitive stone management. At minimum needs nephrostomy tube changes every [address] Abnormal appearance of gallbladder. Recommend MRI, possible general surgery consult based on results. Subjective Date of service: 12/17/18 Principal diagnosis: LEONOR Interval history: Reviewed CT scan. Nephrostomy tubes are in appropriate position. The gallbladder has an abnormal appearance with what appears to be an adjacent fluid collection and/or malignancy. Discussed with Dr. Lowe who reviewed the study, agreed, and amended the old report. Discussed with the hospitalist. Objective - Constitutional Vitals: Vital Signs - 12hr 12/17/18 12/17/18 02:34 07:41 Temperature 97.7 F 97.9 F Pulse Rate 67 62 Respiratory 18 18 Rate Blood Pressure 101/57 115/64 O2 Sat by Pulse 94 96 Oximetry General appearance: Present: no acute distress - EENT Eyes: EOM intact ENT: hearing intact - Respiratory Respiratory effort: normal - Gastrointestinal General gastrointestinal: Present: other (R CVT tenderness, mild) - Psychiatric Psychiatric: appropriate mood/affect, cooperative - Labs CBC & Chem 7: 12/16/18 04:24 12/16/18 04:24 Medications & Allergies - Medications Allergies/Adverse Reactions: Allergies No Known Allergies Allergy (Verified 06/15/17 21:08) Home Medications: Home Medications Medication Instructions Recorded Confirmed Last Taken Type No Known Home Medications [No 12/16/18 12/16/18 Unknown History Reported Home Medications] Active Medications: Generic Name Dose Route Start Last Admin Trade Name Freq PRN Reason Stop Dose Admin Acetaminophen 650 mg 12/13/18 23:20 12/15/18 20:33 Tylenol PO 650 mg Q4H PRN Administration Pain MILD(1-3)/Fever >100.5/STEELE Acetaminophen/Hydrocodone Bitart 1 each 12/13/18 23:20 12/17/18 00:02 [place] 10/325 PO 1 each Q4H PRN Administration Pain , Severe (7-10) Enoxaparin Sodium 30 mg 12/16/18 10:00 12/17/18 09:43 Lovenox SUB-Q 30 mg QDAY COLBY Administration Sodium Chloride 1,000 mls @ 75 mls/hr 12/13/18 23:45 12/17/18 05:24 Nacl 0.45% 1000 Ml IV 75 mls/hr DIRECT COLBY Administration Levofloxacin/Dextrose 250 mg in 50 mls @ 50 mls/hr 12/16/18 10:00 12/17/18 09:42 Levaquin 250mg/50ml IV 50 mls/hr Q24HR COLBY Administration Morphine Sulfate 4 mg 12/13/18 23:20 Morphine IV Q4H PRN Pain, Moderate (4-6) Ondansetron HCl 4 mg 12/13/18 23:20 12/17/18 08:42 Zofran IV 4 mg Q8H PRN Administration Nausea And Vomiting Pantoprazole Sodium 40 mg 12/14/18 10:00 12/17/18 09:43 Protonix PO 40 mg QDAY COLBY Administration Promethazine HCl 25 mg 12/13/18 23:20 Phenergan [place] Q6H PRN N/V IF NPO AND NO IV ACCESS Sodium Chloride 10 ml 12/14/18 10:00 12/17/18 09:44 Sodium Chloride Flush Syringe 10 Ml IV 10 ml BID COLBY Administration
--- NOTE | 2018-12-17 14:21 | Consultation ---
History of Present Illness - Reason for Consult Consult date: 12/17/18 Sepsis, urine source Requesting physician: ASHANTI UGARTE - History of Present Illness The patient is a 42-year-old female with nephrolithiasis, former smoker, COPD presented to the emergency room on 12/13/2018 with complaints of right-sided flank pain. She had a known previous history of bilateral staghorn calculi but did not follow-up with urology apparently. Urology and interventional radiology were consulted, on 12/14/2018, she underwent bilateral fluoroscopic and ultrasound guided nephrostomy tube placements. There was purulent fluid noted from the right kidney. Patient has been on levofloxacin since admission. Infectious diseases was consulted for antibiotic recommendations. Per discussion with Dr. Ugarte, apparently, there is also a concern for GB fundus mass v/s abscess. Patient had fever 2 days ago, now resolved. Only complaint right now is soreness from the tubes and nausea. Review of Systems: General: fever resolved, no chills or rigors HEENT: no new visual disturbance Respiratory: No cough, sputum, hemoptysis or shortness of breath Cardiovascular: No chest pain, syncope Gastrointestinal: + nausea, no vomiting or diarrhea Genitourinary: No dysuria or hematuria Musculoskeletal: No new or worsening neck pain. R flank pain + Neurologic: No headaches, seizures Hematologic: No easy bruising or bleeding Endocrine: No night sweats or acute weight loss Skin: negative for rash, jaundice Psychiatric: No suicidal or homicidal ideation Past History Past Medical History: COPD, renal failure, other (nephrolithiasis ) Past Surgical History: tonsillectomy, Other (bilateral nephrosctomy placement ) Social history: other (ex cig. smoker, quit about 10years ago, no alcohol or drug abuse, has 2 children, lives with son) Family history: no significant family history Medications and Allergies Allergies Allergy/AdvReac Type Severity Reaction Status Date / Time No Known Allergies Allergy Verified 06/15/17 21:08 Home Medications Medication Instructions Recorded Confirmed Last Taken Type No Known Home Medications [No 12/16/18 12/16/18 Unknown History Reported Home Medications] Active Meds: Active Medications Acetaminophen (Tylenol) 650 mg PO Q4H PRN PRN Reason: Pain MILD(1-3)/Fever >100.5/STEELE Last Admin: 12/15/18 20:33 Dose: 650 mg Documented by: Acetaminophen/Hydrocodone Bitart ([place] 10/325) 1 each PO Q4H PRN PRN Reason: Pain , Severe (7-10) Last Admin: 12/17/18 00:02 Dose: 1 each Documented by: Enoxaparin Sodium (Lovenox) 30 mg SUB-Q QDAY [facility] Last Admin: 12/17/18 09:43 Dose: 30 mg Documented by: Sodium Chloride (Nacl 0.45% 1000 Ml) 1,000 mls @ 75 mls/hr IV DIRECT [facility] Last Admin: 12/17/18 05:24 Dose: 75 mls/hr Documented by: Levofloxacin/Dextrose (Levaquin 250mg/50ml) 250 mg in 50 mls @ 50 mls/hr IV Q24HR [facility] Last Admin: 12/17/18 09:42 Dose: 50 mls/hr Documented by: Morphine Sulfate (Morphine) 4 mg IV Q4H PRN PRN Reason: Pain, Moderate (4-6) Ondansetron HCl (Zofran) 4 mg IV Q8H PRN PRN Reason: Nausea And Vomiting Last Admin: 12/17/18 08:42 Dose: 4 mg Documented by: Pantoprazole Sodium (Protonix) 40 mg PO QDAY [facility] Last Admin: 12/17/18 09:43 Dose: 40 mg Documented by: Promethazine HCl (Phenergan) 25 mg [place] Q6H PRN PRN Reason: N/V IF NPO AND NO IV ACCESS Sodium Chloride (Sodium Chloride Flush Syringe 10 Ml) 10 ml IV BID [facility] Last Admin: 12/17/18 09:44 Dose: 10 ml Documented by: Physical Examination - Physical Exam Narrative exam: Physical Exam: Constitutional: Alert, cooperative. No acute distress Head, Ears, Nose: Normocephalic, atraumatic. External ears, nose normal Eyes: Conjunctivae/corneas clear. No icterus. No ptosis. Neck: Supple, no meningeal signs Oral: dentition poor, no thrush Cardiovascular: S1, S2 normal. Respiratory: Good air entry, clear to auscultation bilaterally GI: Soft, non-tender; bowel sounds normal. No peritoneal signs. b/l nephrostomy tubes + with R flank tenderness Musculoskeletal: No pedal edema, no cyanosis. Skin: No rash or abscess Hem/Lymphatic: No palpable cervical or supraclavicular nodes. No lymphangitis Psych: Mood ok. Affect normal Neurological: Awake, alert, oriented. No gross abnormality - Constitutional Vitals: Vital Signs Temp Pulse Resp BP Pulse Ox 97.9 F 62 18 115/64 96 12/17/18 07:41 12/17/18 07:41 12/17/18 07:41 12/17/18 07:41 12/17/18 07:41 Temperature -Last 24 Hours Temperature 97.9 F Temperature 97.7 F Temperature 97.9 F Temperature 98.6 F Results - Labs CBC & Chem 7: 12/16/18 04:24 12/16/18 04:24 - Imaging and Cardiology Chest x-ray: report reviewed, image reviewed (X-ray shows no evidence of pneumonia.) CT scan - abdomen: report reviewed, image reviewed (Bilateral staghorn calculi with hydronephrosis) Assessment and Plan Cultures: 12/13/2018 blood culture: No growth 12/13/2018 urine culture: Proteus 12/14/2018 right kidney drainage culture: Staph aureus A/P: 42-year-old female with nephrolithiasis, former smoker, COPD admitted with: 1) Bilateral staghorn nephrolithiasis, right-sided pyelonephritis: Status post bilateral nephrostomy tube placements on 12/14/2018. Right kidney apparently draining purulent fluid and culture is growing staph aureus. Urine culture on admission growing Proteus. 2) LEONOR/CKD, obstructive uropathy: Nephrology following. Renally dose abx. 3) Questionable gallbladder fundus abscess versus mass: Plan for MRI/ultrasound. Recs: Discontinued levofloxacin PO Keflex 500 mg 3 times a day ordered 1 dose of IV daptomycin ordered, follow-up staph aureus ID and susceptibilities Follow up MRI abdomen / RUQ US results D/W Dr. Ugarte. Fab Spivey MD, FACP [facility] M: [phone] O: [phone] F: [phone]
[2018-12-17] MEDS ORDERED: DAPTOMYCIN IV SCH (15:00)
[2018-12-17] MEDS ORDERED: NACL 0.9% IV SCH (15:00)
[2018-12-17] MEDS ORDERED: FLEET PR PRN (16:49)
[2018-12-17] MEDS ORDERED: MIRALAX 3350 PO PRN (16:49)
[2018-12-17] MEDS ORDERED: SENOKOT S PO PRN (16:49)
[2018-12-17] MEDS ORDERED: REGLAN IV PRN (16:53)
[2018-12-17] MEDS: KEFLEX PO SCH ×2 (17:22→23:02)
--- NOTE | 2018-12-17 17:31 | Magnetic Resonance Report ---
MRI of the abdomen without and with contrast INDICATION: Abnormality involving the fundus of the gallbladder on recent CT exam. This study is performed to fur ther evaluate. TECHNIQUE: Axial and coronal imaging is performed through the abdomen using multiple different imaging sequence s. Pre and postcontrast images were obtained. 20 cc of MultiHance is administered COMPARISON: CT scans dated 12/13/2018 and 06/16/2017 FINDINGS: There are gallstones noted throughout the gallbladder. There are gallstones and some fluid noted ante rior and lateral to the edge of the gallbladder and there is some soft tissue enhancement in this loc ation. On the CT scan from 2018, the gallbladder does not extend beyond the margin of the liver. It i s possible that this simply represent some distention of the gallbladder with stones extending past t he liver margin. There is possible that this represents cholecystitis with contained perforation of t he gallbladder tip in leakage of stones into the adjacent fat. There is some edema in the soft tissue around this area. There is no biliary dilatation. The pancreatic duct is normal in diameter. Cyst in the right lobe the liver. There are nephrostomy tubes in the kidneys. There is a hiatal hernia. IMPRESSION: There are numerous gallstones in the lumen of the gallbladder. There is some edema in the soft tissue s and abdominal wall anterior and lateral to the liver. There are gallstones at this site and I suspe ct that this represents some distention of the gallbladder into this location. Possibly with cholecys titis involving the fundus of the gallbladder in this location. However, the gallbladder did not extend this far on imaging from 2018. It is possible that the stones and edema peripheral to the liver represent a contained rupture of the gallbladder with leakage of s tones into the site with surrounding edema; though I feel that that is significantly less likely. Signer Name: Anand Garcia MD Signed: 12/17/2018 5:26 PM Workstation Name: [id number]
--- NOTE | 2018-12-17 18:10 | Consultation ---
History of Present Illness Consult date: 12/17/18 Reason for consult: other (abnormal gallbladder on CT) Requesting physician: ASHANTI CAPUTO Chief complaint: kidney stones - History of present illness History of present illness: 63-year-old woman presented to the hospital with right-sided flank pain and abdominal pain radiating to suprapubic area was found to have bilateral renal stones with obstruction and pyelonephritis. Pt was managed with bilateral nephrostomy tubes. On a follow-up CT scan, incidental note was made of an abnormal appearing gallbladder. Follow-up MRI, suggested possible rupture of gallbladder into the adjacent anterior abdominal wall. General surgery was consult for further evaluation and management. Patient reports that currently she has mild nausea, but this started when she began having problems with her kidney stones. Prior to that time, she had no issues with nausea or vomiting. She denies any upper abdominal pain or discomfort. She had no issues with postprandial pain currently or in the past. She was able to eat and drink whatever she liked. She never had right upper quadrant/epigastric pain or discomfort in the past. Past History Past Medical History: COPD, renal failure, other (nephrolithiasis ) Past Surgical History: tonsillectomy, Other (bilateral nephrosctomy placement ) Social history: other (ex cig. smoker, quit about 10years ago, no alcohol or drug abuse, has 2 children, lives with son). denies: smoking, alcohol abuse Family history: no significant family history Medications and Allergies Allergies Allergy/AdvReac Type Severity Reaction Status Date / Time No Known Allergies Allergy Verified 06/15/17 21:08 Home Medications Medication Instructions Recorded Confirmed Last Taken Type No Known Home Medications [No 12/16/18 12/16/18 Unknown History Reported Home Medications] Active Meds: Active Medications Acetaminophen (Tylenol) 650 mg PO Q4H PRN PRN Reason: Pain MILD(1-3)/Fever >100.5/STEELE Last Admin: 12/15/18 20:33 Dose: 650 mg Documented by: Acetaminophen/Hydrocodone Bitart ([place] 10/325) 1 each PO Q4H PRN PRN Reason: Pain , Severe (7-10) Last Admin: 12/17/18 00:02 Dose: 1 each Documented by: Cephalexin (Keflex) 250 mg PO Q8HR COLBY Last Admin: 12/17/18 17:22 Dose: 250 mg Documented by: Enoxaparin Sodium (Lovenox) 30 mg SUB-Q QDAY [facility] Last Admin: 12/17/18 09:43 Dose: 30 mg Documented by: Sodium Chloride (Nacl 0.45% 1000 Ml) 1,000 mls @ 75 mls/hr IV DIRECT [facility] Last Admin: 12/17/18 05:24 Dose: 75 mls/hr Documented by: Metoclopramide HCl (Reglan) 10 mg IV Q6H PRN PRN Reason: Nausea And Vomiting Morphine Sulfate (Morphine) 4 mg IV Q4H PRN PRN Reason: Pain, Moderate (4-6) Ondansetron HCl (Zofran) 4 mg IV Q8H PRN PRN Reason: Nausea And Vomiting Last Admin: 12/17/18 08:42 Dose: 4 mg Documented by: Pantoprazole Sodium (Protonix) 40 mg PO QDAY [facility] Last Admin: 12/17/18 09:43 Dose: 40 mg Documented by: Polyethylene Glycol (Miralax [id number]) 17 gm PO QDAY PRN PRN Reason: Constipation Promethazine HCl (Phenergan) 25 mg CO Q6H PRN PRN Reason: N/V IF NPO AND NO IV ACCESS Senna/Docusate Sodium (Senokot S) 2 tab PO Q12H PRN PRN Reason: Laxative Effect Sodium Biphosphate/Sodium Phosphate (Fleet) 133 ml CO QDAY PRN PRN Reason: Bowel Movement Sodium Chloride (Sodium Chloride Flush Syringe 10 Ml) 10 ml IV BID [facility] Last Admin: 12/17/18 09:44 Dose: 10 ml Documented by: Review of Systems - Gastrointestinal nausea, no abdominal pain, no vomiting, no change in bowel habits - Genitourinary Genitourinary: flank pain - Muskuloskeletal low back pain - Integumentary no rash, no pruritis, no sores, no wounds, no jaundice Exam Vital Signs Temp Pulse Resp BP Pulse Ox 98.2 F 82 16 110/71 97 12/13/18 16:24 12/13/18 16:24 12/13/18 16:24 12/13/18 16:24 12/13/18 16:24 - General physical appearance Positive: no distress, no pain, other (pleasant elderly female. Does not appear ill) - Eyes Negative: icteric - Respiratory Positive: normal expansion, normal respiratory effort, clear to auscultation - Cardiovascular Rhythm: regular - Abdomen Abdomen: Present: soft. Absent: tender, distended, masses, rebound, guarding, rigid, surgical scars - Integumentary no rash, no growths, no abnormal pigmentation - Neurologic Neurologic: alert and oriented to time, place and person - Psychiatric Psychiatric: appropriate mood/affect, intact judgment & insight, cooperative Results - Labs 12/16/18 04:24 12/16/18 04:24 - Imaging CT scan - abdomen: report reviewed, image reviewed CT scan - pelvis: report reviewed, image reviewed Additional studies: MRI abdomen reviewed Assessment and Plan - Patient Problems (1) Abnormal findings on diagnostic imaging of gallbladder Current Visit: Yes Status: Acute Plan to address problem: Pt stable. Patient has no symptoms related to the gallbladder, except perhaps her nausea. The radiographic reports do not fit at all with her clinical picture. Her right upper quadrant/epigastric area are completely benign, even with deep palpation. She should have some discomfort if an abscess were present. She should have some discomfort if there is a perforation of the gallbladder into the anterior abdominal wall. I would recommend we get a HIDA scan to evaluate for cholecystitis which might explain her nausea. If that is positive, then we will offer her a cholecystectomy to help treat her nausea. If not, then we will have to decide with the patient if we should pursue a diagnostic laparoscopy and when we should do that. This is not an emergency. This does not have to be done as an inpatient if she is otherwise ready for discharge. HIDA scan has been ordered for tomorrow. We will follow along. Please call with any questions. Time=45min
--- NOTE | 2018-12-17 21:37 | Ultrasound Report ---
ULTRASOUND ABDOMEN, LIMITED (RIGHT UPPER QUADRANT) INDICATION / CLINICAL INFORMATION: gb abnormal on ct. COMPARISON: CT dated 12/16/2018 and 12/13/2018. MR abdomen dated 12/17/18 FINDINGS: PANCREAS: Visualized portion shows no significant abnormality. LIVER: No significant abnormality. GALLBLADDER: Gallbladder is completely filled with echogenic gallstones. There is irregularity of the fundus the gallbladder at the anterior margin of the liver as seen on recent MRI and CT. BILE DUCTS: No significant abnormality. Common bile duct measures 4.0 mm. FREE FLUID: None. ADDITIONAL FINDINGS: None. IMPRESSION: 1. Cholelithiasis with irregularity of the fundus of the gallbladder in the same location as irregula rity on MRI and CT. This could represent contained rupture of the gallbladder fundus as noted on MRI. Signer Name: Randy Matos MD Signed: 12/17/2018 9:32 PM Workstation Name: [id number]
[2018-12-18] MEDS: KEFLEX PO SCH ×2 (05:00→22:31)
[2018-12-18 05:37] LABS: Albumin 2.5 g/dL (3.9-5); BUN/Creatinine Ratio 6; Blood Urea Nitrogen 8 mg/dL (7-17); Calcium 8.3 mg/dL (8.4-10.2); Hemolysis Index 16
[2018-12-18 05:46] LABS: Alanine Aminotransferase < 5 units/L (7-56)
--- NOTE | 2018-12-18 08:54 | Progress Note ---
Assessment and Plan Cultures: 12/13/2018 blood culture: No growth 12/13/2018 urine culture: Proteus 12/14/2018 right kidney drainage culture: MSSA, cortez susceptible A/P: 42-year-old female with nephrolithiasis, former smoker, COPD admitted with: 1) Bilateral staghorn nephrolithiasis, right-sided pyelonephritis: Status post bilateral nephrostomy tube placements on 12/14/2018. Right kidney apparently draining purulent fluid and culture is growing MSSA. Urine culture on admission growing Proteus. 2) LEONOR/CKD, obstructive uropathy: Nephrology following. Renally dose abx. 3) Questionable gallbladder fundus abscess versus mass: MRI abdomen/RUQ US results show numerous gallstones in the lumen of the gallbladder which represents some distention of the gallbladder into this location. Possibly with cholecystitis involving the fundus of the gallbladder. Cyst in the right lobe the liver. Recs: Discontinue Keflex Start IV Unasyn 3gm every 6 hours Follow-up HIDA Scan result [facility] M: [id number] O:[phone] Subjective Date of service: 12/18/18 Principal diagnosis: LEONOR Interval history: Patient seen and examined. Right flank tenderness. No generalized weakness. No fevers Objective - Exam Narrative Exam: Constitutional: Alert, cooperative. No acute distress Head, Ears, Nose: Normocephalic, atraumatic. External ears, nose normal Eyes: Conjunctivae/corneas clear. No icterus. No ptosis. Neck: Supple, no meningeal signs Oral: dentition poor, no thrush Cardiovascular: S1, S2 normal. Respiratory: Good air entry, clear to auscultation bilaterally GI: Soft, non-tender; bowel sounds normal. No peritoneal signs. b/l nephrostomy tubes + with R flank tenderness. Musculoskeletal: No pedal edema, no cyanosis. Skin: No rash or abscess Hem/Lymphatic: No palpable cervical or supraclavicular nodes. No lymphangitis Psych: Mood ok. Affect normal Neurological: Awake, alert, oriented. No gross abnormality - Constitutional Vitals: Vital Signs Temp Pulse Resp BP Pulse Ox 98.8 F 65 18 113/60 97 12/18/18 08:18 12/18/18 08:18 12/18/18 08:18 12/18/18 08:18 12/18/18 08:18 Temperature -Last 24 Hours Temperature 98.8 F Temperature 98.0 F Temperature 97.6 F Temperature 97.5 F - Labs CBC & Chem 7: 12/16/18 04:24 12/18/18 05:02 Labs: Abnormal lab results 12/18/18 Range/Units 05:02 Creatinine 1.3 H (0.7-1.2) mg/dL Calcium 8.3 L (8.4-10.2) mg/dL ALT < 5 L (7-56) units/L Total Protein 5.6 L D (6.3-8.2) g/dL Albumin 2.5 L (3.9-5) g/dL
[2018-12-18] MEDS: LOVENOX SUB-Q SCH (09:22)
[2018-12-18] MEDS: SODIUM CHLORIDE FLUSH SYRINGE 10 ML IV SCH ×2 (09:23→22:32)
[2018-12-18] MEDS: PROTONIX PO SCH (10:17)
--- NOTE | 2018-12-18 13:04 | Progress Note ---
Assessment and Plan Assessment and plan: still spiking fever, obtain repeat CT and cxr Bilateral staghorn calculi with obstruction bilaterally - Urologist consulted and stated patient is noncompliant & didn't follow in the office, sp bilat nephrostomies by IR - cont abx per ID cholelithiasis -completely asymptomatic, dw GS, outpatient fup GB mass/abscess ruled out Hypokalemia -Corrected UTI - Patient is on antibiotics - Urine culture growing proteus and MSSA DVT prophylaxis Disposition; home with home health tomorrow if ok by ID Hospitalist Physical - Constitutional Vitals: Temp Pulse Resp BP Pulse Ox 98.8 F 65 18 113/60 97 12/18/18 08:18 12/18/18 08:18 12/18/18 10:00 12/18/18 08:18 12/18/18 08:18 General appearance: Present: no acute distress Results - Labs CBC & Chem 7: 12/16/18 04:24 12/18/18 05:02 Labs: Laboratory Last Values WBC 9.8 K/mm3 (4.5-11.0) 12/16/18 04:24 RBC 3.78 M/mm3 (3.65-5.03) 12/16/18 04:24 Hgb 10.5 gm/dl (10.1-14.3) 12/16/18 04:24 Hct 31.6 % (30.3-42.9) 12/16/18 04:24 MCV 84 fl (79-97) 12/16/18 04:24 MCH 28 pg (28-32) 12/16/18 04:24 MCHC 33 % (30-34) 12/16/18 04:24 RDW 18.5 % (13.2-15.2) H 12/16/18 04:24 Plt Count 337 K/mm3 (140-440) 12/16/18 04:24 Lymph % (Auto) 16.3 % (13.4-35.0) 12/16/18 04:24 [place] % (Auto) 9.0 % (0.0-7.3) H 12/16/18 04:24 Eos % (Auto) 3.6 % (0.0-4.3) 12/16/18 04:24 Baso % (Auto) 0.8 % (0.0-1.8) 12/16/18 04:24 Lymph # 1.6 K/mm3 (1.2-5.4) 12/16/18 04:24 [place] # 0.9 K/mm3 (0.0-0.8) H 12/16/18 04:24 Eos # 0.4 K/mm3 (0.0-0.4) 12/16/18 04:24 Baso # 0.1 K/mm3 (0.0-0.1) 12/16/18 04:24 Seg Neutrophils % 70.3 % (40.0-70.0) H 12/16/18 04:24 Seg Neutrophils # 6.9 K/mm3 (1.8-7.7) 12/16/18 04:24 Sodium 137 mmol/L (137-145) 12/18/18 05:02 Potassium 4.2 mmol/L (3.6-5.0) 12/18/18 05:02 Chloride 106.3 mmol/L (98-107) 12/18/18 05:02 Carbon Dioxide 22 mmol/L (22-30) 12/18/18 05:02 13 mmol/L 12/18/18 05:02 BUN 8 mg/dL (7-17) 12/18/18 05:02 1.3 mg/dL (0.7-1.2) H 12/18/18 05:02 Estimated GFR 41 ml/min 12/18/18 05:02 6 % 12/18/18 05:02 Glucose 78 mg/dL (65-100) 12/18/18 05:02 Calcium 8.3 mg/dL (8.4-10.2) L 12/18/18 05:02 0.20 mg/dL (0.1-1.2) 12/18/18 05:02 AST 9 units/L (5-40) 12/18/18 05:02 ALT < 5 units/L (7-56) L 12/18/18 05:02 81 units/L (35-129) 12/18/18 05:02 5.6 g/dL (6.3-8.2) L D 12/18/18 05:02 2.5 g/dL (3.9-5) L 12/18/18 05:02 0.8 % 12/18/18 05:02 21 units/L (13-60) 12/13/18 16:48 Yellow (Yellow) 12/13/18 21:34 Cloudy (Clear) 12/13/18 21:34 7.0 (5.0-7.0) 12/13/18 21:34 Ur Specific [place] 1.012 (1.003-1.030) 12/13/18 21:34 100 mg/dl mg/dL (Negative) 12/13/18 21:34 Neg mg/dL (Negative) 12/13/18 21:34 Neg mg/dL (Negative) 12/13/18 21:34 Sm (Negative) 12/13/18 21:34 Pos (Negative) 12/13/18 21:34 Neg (Negative) 12/13/18 21:34 < 2.0 mg/dL (<2.0) 12/13/18 21:34 Ur Leukocyte Esterase Lg (Negative) 12/13/18 21:34 > 182.0 /HPF (0.0-6.0) H 12/13/18 21:34 22.0 /HPF (0.0-6.0) 12/13/18 21:34 U Epithel Cells (Auto) 1.0 /HPF (0-13.0) 12/13/18 21:34 2+ /HPF (Negative) 12/13/18 21:34 2+ /HPF 12/13/18 21:34 Active Medications - Current Medications Current Medications: Generic Name Dose Route Start Last Admin Trade Name Freq PRN Reason Stop Dose Admin Acetaminophen 650 mg 12/13/18 23:20 12/15/18 20:33 Tylenol PO 650 mg Q4H PRN Administration Pain MILD(1-3)/Fever >100.5/STEELE Acetaminophen/Hydrocodone Bitart 1 each 12/13/18 23:20 12/17/18 00:02 [place] 10/325 PO 1 each Q4H PRN Administration Pain , Severe (7-10) Cephalexin 250 mg 12/17/18 15:00 12/18/18 05:00 Keflex PO Not Given Q8HR COLBY Enoxaparin Sodium 40 mg 12/18/18 10:00 12/18/18 09:22 Lovenox SUB-Q 40 mg QDAY@1000 COLBY Administration Sodium Chloride 1,000 mls @ 75 mls/hr 12/13/18 23:45 12/17/18 23:02 Nacl 0.45% 1000 Ml IV 75 mls/hr DIRECT COLBY Administration Metoclopramide HCl 10 mg 12/17/18 16:53 Reglan IV Q6H PRN Nausea And Vomiting Morphine Sulfate 4 mg 12/13/18 23:20 12/17/18 21:47 Morphine IV 4 mg Q4H PRN Administration Pain, Moderate (4-6) Ondansetron HCl 4 mg 12/13/18 23:20 12/17/18 21:47 Zofran IV 4 mg Q8H PRN Administration Nausea And Vomiting Pantoprazole Sodium 40 mg 12/14/18 10:00 12/18/18 10:17 Protonix PO Not Given QDAY COLBY Polyethylene Glycol 17 gm 12/17/18 16:49 Miralax 3350 PO QDAY PRN Constipation Promethazine HCl 25 mg 12/13/18 23:20 Phenergan [place] Q6H PRN N/V IF NPO AND NO IV ACCESS Senna/Docusate Sodium 2 tab 12/17/18 16:49 Senokot S PO Q12H PRN Laxative Effect Sodium Biphosphate/Sodium Phosphate 133 ml 12/17/18 16:49 Fleet VA QDAY PRN Bowel Movement Sodium Chloride 10 ml 12/14/18 10:00 12/18/18 09:23 Sodium Chloride Flush Syringe 10 Ml IV 10 ml BID COLBY Administration Nutrition/Malnutrition Assess - Dietary Evaluation Nutrition/Malnutrition Findings: Nutrition Notes Start: 12/14/18 10:49 Freq: Status: Active Protocol: Document 12/17/18 15:00 CO (Rec: 12/17/18 15:04 CO [id number]) Nutrition Notes Initial or Follow up Reassessment Current Diet renal Labs/Tests Reviewed Pertinent Medications Reviewed Height 5 ft 7 in Weight 61 kg [place] Body Weight (kg) 61.36 BMI 21.0 Weight change and time frame Wts not consistent in hospital . Will monitor trend. Subjective/Other Information f/u: Pt. lying in bed. Temporal wasting noted. Pt. reports poor appetite today due to n/v. She did consume breakfast. Pt. open to ONS. Percent of energy/protein needs met: <75/75% Burn Absent Trauma Absent GI Symptoms Nausea,Vomiting Current % PO Fair (50-74%) #1 Nutrition Diagnosis Malnutrition Etiology decreased appetite and COPD Is patient on ventilator? No Is Patient Ambulatory and/or Out of Bed No REE-([place]-confined to bed) 1430.664 Additional Notes add 500 kcal for malnourishment to total to 1820 kcals/day PRO needs: 62g (1.2-1.5 g/kg ABW) Fluid needs: 1820 mL (1 mL/ kcal) Nutrition Intervention Change Diet Order: Cont renal diet Add Supplement/Snack (indicate name/kcal Nepro (425 kcal, 19.1 g PRO) /protein ) BID Vanilla Provides kCal: 850 Provides Protein (gm) 38 Goal #1 Meet at least 80% of kcal and PRO needs. Goal #2 weight gain/maintenance Anticipated Discharge Needs: renal diet w/nepro bid Follow-Up By: 12/20/18 Additional Comments F/U for intakes
[2018-12-18] MEDS: UNASYN/NS 3 GM/100 ML 3 GM/100 ML BAG IV SCH ×2 (13:55→17:45)
--- NOTE | 2018-12-18 14:56 | Nuclear Medicine Report ---
NUCLEAR MEDICINE HEPATOBILIARY SCAN INDICATION: evaluate for cholecystitis. Right upper quadrant pain COMPARISON: Correlation is made with CT, ultrasound and MR of the abdomen performed 12/17/2018. TECHNIQUE: Radiotracer: Tc-99m mebrofenin (by IV): 5.0 mCi. Gallbladder Stimulant: None. FINDINGS: Hepatic activity: Normal. Biliary activity: Normal. Common bile duct activity at 15 minutes. Gallbladder activity: Not confidently identified out to 2 hours imaging. Small bowel activity: Normal at 25 minutes. IMPRESSION: No gallbladder activity is confidently identified after 2 hours of imaging. Signer Name: Luis Lowe Jr, MD Signed: 12/18/2018 1:55 PM Workstation Name: [id number]
--- NOTE | 2018-12-18 15:36 | Progress Note ---
Assessment and Plan - Patient Problems (1) Abnormal findings on diagnostic imaging of gallbladder Current Visit: Yes Status: Acute Plan to address problem: Pt stable. HIDA scan has been completed and shows no uptake in the gallbladder. Patient continues to be asymptomatic and her nausea has resolved as well. The nausea could very easily be explained by her urinary tract infection. I discussed the option of surgery versus follow-up in the office and reevaluation. My concern is that the radiographic interpretation of a perforation or abscess is not in any way correlated with her laboratory and exam findings. She is completely asymptomatic at this point. I am also concerned that the lack of contrast uptake could be related to the gallbladder being completely packed with stones as opposed to an active infection. We have seen this before as well. Another reason to wait is her risk of surgical site infection goes up with any remote infection. In this case it would be her UTI. The patient was in agreement to treat her current infection and then follow-up in the office for reevaluation. I have given her my business card and we would be happy to see her in the office 1-2 weeks after discharge. I have also discussed the plan with . Please call with any questions. Time=15min Subjective Date of service: 12/18/18 Patient Reports: Positive: feels better, pain is less, tolerating a regular diet. Negative: nausea, vomiting Objective Vital Signs - 12hr 12/18/18 12/18/18 08:18 10:00 Temperature 98.8 F Pulse Rate 65 Respiratory 18 18 Rate Blood Pressure 113/60 [Left] O2 Sat by Pulse 97 Oximetry - General physical appearance no distress, no pain, other (looks well) - Abdomen soft, not tender, not distended, not masses, not guarding, not rigid - Integumentary no rash, no growths, no abnormal pigmentation - Psychiatric oriented to time, oriented to person, oriented to place, speech is normal, memory intact - Labs 12/16/18 04:24 12/18/18 05:02 Diabetes panel 12/18/18 Range/Units 05:02 Sodium 137 (137-145) mmol/L Potassium 4.2 (3.6-5.0) mmol/L Chloride 106.3 (98-107) mmol/L Carbon Dioxide 22 (22-30) mmol/L BUN 8 (7-17) mg/dL Creatinine 1.3 H (0.7-1.2) mg/dL Glucose 78 (65-100) mg/dL Calcium 8.3 L (8.4-10.2) mg/dL AST 9 (5-40) units/L ALT < 5 L (7-56) units/L Alkaline Phosphatase 81 (35-129) units/L Total Protein 5.6 L D (6.3-8.2) g/dL Albumin 2.5 L (3.9-5) g/dL Calcium panel 12/18/18 Range/Units 05:02 Calcium 8.3 L (8.4-10.2) mg/dL Albumin 2.5 L (3.9-5) g/dL Pituitary panel 12/18/18 Range/Units 05:02 Sodium 137 (137-145) mmol/L Potassium 4.2 (3.6-5.0) mmol/L Chloride 106.3 (98-107) mmol/L Carbon Dioxide 22 (22-30) mmol/L BUN 8 (7-17) mg/dL Creatinine 1.3 H (0.7-1.2) mg/dL Glucose 78 (65-100) mg/dL Calcium 8.3 L (8.4-10.2) mg/dL Adrenal panel 12/18/18 Range/Units 05:02 Sodium 137 (137-145) mmol/L Potassium 4.2 (3.6-5.0) mmol/L Chloride 106.3 (98-107) mmol/L Carbon Dioxide 22 (22-30) mmol/L BUN 8 (7-17) mg/dL Creatinine 1.3 H (0.7-1.2) mg/dL Glucose 78 (65-100) mg/dL Calcium 8.3 L (8.4-10.2) mg/dL Total Bilirubin 0.20 (0.1-1.2) mg/dL AST 9 (5-40) units/L ALT < 5 L (7-56) units/L Alkaline Phosphatase 81 (35-129) units/L Total Protein 5.6 L D (6.3-8.2) g/dL Albumin 2.5 L (3.9-5) g/dL
[2018-12-18] MEDS: NACL 0.45% 1000 ML 1,000 ML IV SCH (17:46)
--- NOTE | 2018-12-18 18:36 | Progress Note ---
Assessment and Plan - Patient Problems (1) Acute kidney injury Current Visit: Yes Status: Acute Plan to address problem: Acute kidney injury possibly superimposed on chronic kidney disease. Kidney disease secondary to obstructive uropathy secondary to staghorn calculus and Pyelonephritis. Kidney function is improving. Follow up electrolytes and renal function (2) Hydronephrosis Current Visit: Yes Status: Acute Qualifiers: Hydronephrosis type: unspecified Qualified Code(s): N13.30 - Unspecified hydronephrosis Plan to address problem: S/p bilateral percutaneous nephrostomy tubes per urology. Follow-up by urologist (3) Nephrolithiasis Current Visit: No Status: Acute Plan to address problem: Staghorn calculus. Management by urologist. (4) Pyelonephritis Current Visit: No Status: Acute Plan to address problem: Continue antibiotics appropriately adjusted to the degree of renal function. Subjective Date of service: 12/18/18 Principal diagnosis: LEONOR Interval history: Patient seen lying in bed this morning. She has no new complaints. Had some nausea but no vomiting. Still has pain in right flank Objective - Exam Narrative Exam: Frail elderly female lying in bed in no acute distress HEENT: NCAT, pink oral mucous membrane Neck: Supple, no venous distention CVS: S1S2 RRR with no murmur, rub or gallop Chest: Clear to auscultation Abdomen: Protuberant, soft, nontender, no organomegaly, bowel sounds are present Extremities: No edema Neuro: Awake, alert no focal deficits - Vital Signs Vital signs: Vital Signs - 12hr 12/18/18 12/18/18 12/18/18 08:18 10:00 13:15 Temperature 98.8 F 97.9 F Pulse Rate 65 66 Respiratory 18 18 18 Rate Blood Pressure 129/68 Blood Pressure 113/60 [Left] O2 Sat by Pulse 97 98 Oximetry - Lab 12/16/18 04:24 12/18/18 05:02 Most recent lab results Calcium 8.3 mg/dL (8.4-10.2) L 12/18/18 05:02 Medications & Allergies - Medications Allergies/Adverse Reactions: Allergies No Known Allergies Allergy (Verified 06/15/17 21:08) Home Medications: Home Medications Medication Instructions Recorded Confirmed Last Taken Type No Known Home Medications [No 12/16/18 12/16/18 Unknown History Reported Home Medications] Active Medications: Generic Name Dose Route Start Last Admin Trade Name Freq PRN Reason Stop Dose Admin Acetaminophen 650 mg 12/13/18 23:20 12/15/18 20:33 Tylenol PO 650 mg Q4H PRN Administration Pain MILD(1-3)/Fever >100.5/STEELE Acetaminophen/Hydrocodone Bitart 1 each 12/13/18 23:20 12/17/18 00:02 [place] 10/325 PO 1 each Q4H PRN Administration Pain , Severe (7-10) Enoxaparin Sodium 40 mg 12/18/18 10:00 12/18/18 09:22 Lovenox SUB-Q 40 mg QDAY@1000 COLBY Administration Sodium Chloride 1,000 mls @ 75 mls/hr 12/13/18 23:45 12/18/18 17:46 Nacl 0.45% 1000 Ml IV 75 mls/hr DIRECT COLBY Administration Ampicillin Sodium/Sulbactam Sodium 3 gm in 100 mls @ 200 mls/hr 12/18/18 14:00 12/18/18 17:45 Unasyn/Ns 3 Gm/100 Ml IV 200 mls/hr Q6HR COLBY Administration Protocol Metoclopramide HCl 10 mg 12/17/18 16:53 Reglan IV Q6H PRN Nausea And Vomiting Morphine Sulfate 4 mg 12/13/18 23:20 12/17/18 21:47 Morphine IV 4 mg Q4H PRN Administration Pain, Moderate (4-6) Ondansetron HCl 4 mg 12/13/18 23:20 12/17/18 21:47 Zofran IV 4 mg Q8H PRN Administration Nausea And Vomiting Pantoprazole Sodium 40 mg 12/14/18 10:00 12/18/18 10:17 Protonix PO Not Given QDAY COLBY Polyethylene Glycol 17 gm 12/17/18 16:49 12/18/18 14:05 Miralax 3350 PO 17 gm QDAY PRN Administration Constipation Promethazine HCl 25 mg 12/13/18 23:20 Phenergan [place] Q6H PRN N/V IF NPO AND NO IV ACCESS Senna/Docusate Sodium 2 tab 12/17/18 16:49 Senokot S PO Q12H PRN Laxative Effect Sodium Biphosphate/Sodium Phosphate 133 ml 12/17/18 16:49 Fleet NC QDAY PRN Bowel Movement Sodium Chloride 10 ml 12/14/18 10:00 12/18/18 09:23 Sodium Chloride Flush Syringe 10 Ml IV 10 ml BID COLBY Administration
[2018-12-19] MEDS: UNASYN/NS 3 GM/100 ML 3 GM/100 ML BAG IV SCH ×5 (00:19→23:40)
--- NOTE | 2018-12-19 08:39 | Progress Note ---
Assessment and Plan Cultures: 12/13/2018 blood culture: No growth 12/13/2018 urine culture: Proteus 12/14/2018 right kidney drainage culture: MSSA, cortez susceptible A/P: 42-year-old female with nephrolithiasis, former smoker, COPD admitted with: 1) Bilateral staghorn nephrolithiasis, right-sided pyelonephritis: Status post bilateral nephrostomy tube placements on 12/14/2018. Right kidney apparently draining purulent fluid and culture is growing MSSA. Urine culture on admission growing Proteus. 2) LEONOR/CKD, obstructive uropathy: Nephrology following. Renally dose abx. 3) Acute choleysitisis: MRI abdomen/RUQ US results show numerous gallstones in the lumen of the gallbladder which represents some distention of the gallbladder into this location. Possibly with cholecystitis involving the fundus of the gallbladder. Cyst in the right lobe the liver. HIDA scan shows no uptake in the gallbladder. Recs: Continue Unasyn 3gm IV every 6 hours From ID standpoint can discharge on Keflex 500 PO TID and Flayl 500 mg PO TID for 7 days ID is signing off, please call for questions. Daija Wilson NP [facility] M: [id number] O:[phone] Subjective Date of service: 12/19/18 Principal diagnosis: LEONOR Interval history: Patient seen and examined. Right flank tenderness. No abdominal pain. No fevers. Objective - Exam Narrative Exam: Constitutional: Alert, cooperative. No acute distress Head, Ears, Nose: Normocephalic, atraumatic. External ears, nose normal Eyes: Conjunctivae/corneas clear. No icterus. No ptosis. Neck: Supple, no meningeal signs Oral: dentition poor, no thrush Cardiovascular: S1, S2 normal. Respiratory: Good air entry, clear to auscultation bilaterally GI: Soft, non-tender; bowel sounds normal. No peritoneal signs. b/l nephrostomy tubes + with R flank tenderness continuing Musculoskeletal: No pedal edema, no cyanosis. Skin: No rash or abscess Hem/Lymphatic: No palpable cervical or supraclavicular nodes. No lymphangitis Psych: Mood ok. Affect normal Neurological: Awake, alert, oriented. No gross abnormality - Constitutional Vitals: Vital Signs Temp Pulse Resp BP Pulse Ox 97.9 F 69 18 115/69 96 12/19/18 08:03 12/19/18 08:03 12/19/18 08:03 12/19/18 08:03 12/19/18 08:03 Temperature -Last 24 Hours Temperature 97.9 F Temperature 99.5 F Temperature 99.0 F Temperature 97.9 F - Labs CBC & Chem 7: 12/16/18 04:24 12/18/18 05:02
[2018-12-19] MEDS: PROTONIX PO SCH (09:11)
[2018-12-19] MEDS: LOVENOX SUB-Q SCH (09:12)
[2018-12-19] MEDS: SODIUM CHLORIDE FLUSH SYRINGE 10 ML IV SCH ×2 (09:12→22:00)
[2018-12-19] MEDS: NACL 0.45% 1000 ML 1,000 ML IV SCH (11:44)
--- NOTE | 2018-12-19 11:55 | Progress Note ---
Assessment and Plan - Patient Problems (1) Acute kidney injury Current Visit: Yes Status: Acute Plan to address problem: Acute kidney injury possibly superimposed on chronic kidney disease. Kidney disease secondary to obstructive uropathy secondary to staghorn calculus and Pyelonephritis. Kidney function was improving. No labs drawn today. Follow up electrolytes and renal function (2) Hydronephrosis Current Visit: Yes Status: Acute Qualifiers: Hydronephrosis type: unspecified Qualified Code(s): N13.30 - Unspecified hydronephrosis Plan to address problem: S/p bilateral percutaneous nephrostomy tubes per urology. Follow-up by urologist (3) Nephrolithiasis Current Visit: No Status: Acute Plan to address problem: Staghorn calculus. Management by urologist. (4) Pyelonephritis Current Visit: No Status: Acute Plan to address problem: Continue antibiotics appropriately adjusted to the degree of renal function. Subjective Date of service: 12/19/18 Principal diagnosis: LEONOR Interval history: Patient seen lying in bed this morning. She has no new complaints. Had some nausea but no vomiting. Still has pain in right flank Objective - Exam Narrative Exam: Frail elderly female lying in bed in no acute distress HEENT: NCAT, pink oral mucous membrane Neck: Supple, no venous distention CVS: S1S2 RRR with no murmur, rub or gallop Chest: Clear to auscultation Abdomen: Protuberant, soft, nontender, no organomegaly, bowel sounds are present Extremities: No edema Neuro: Awake, alert no focal deficits - Vital Signs Vital signs: Vital Signs - 12hr 12/19/18 12/19/18 02:03 08:03 Temperature 99.5 F 97.9 F Pulse Rate 81 69 Respiratory 18 18 Rate Blood Pressure 115/69 Blood Pressure 119/66 [Left] O2 Sat by Pulse 97 96 Oximetry - Lab 12/16/18 04:24 12/18/18 05:02 Most recent lab results Calcium 8.3 mg/dL (8.4-10.2) L 12/18/18 05:02 Medications & Allergies - Medications Allergies/Adverse Reactions: Allergies No Known Allergies Allergy (Verified 06/15/17 21:08) Home Medications: Home Medications Medication Instructions Recorded Confirmed Last Taken Type No Known Home Medications [No 12/16/18 12/16/18 Unknown History Reported Home Medications] Active Medications: Generic Name Dose Route Start Last Admin Trade Name Freq PRN Reason Stop Dose Admin Acetaminophen 650 mg 12/13/18 23:20 12/15/18 20:33 Tylenol PO 650 mg Q4H PRN Administration Pain MILD(1-3)/Fever >100.5/STEELE Acetaminophen/Hydrocodone Bitart 1 each 12/13/18 23:20 12/17/18 00:02 [place] 10/325 PO 1 each Q4H PRN Administration Pain , Severe (7-10) Enoxaparin Sodium 40 mg 12/18/18 10:00 12/19/18 09:12 Lovenox SUB-Q 40 mg QDAY@1000 COLBY Administration Sodium Chloride 1,000 mls @ 75 mls/hr 12/13/18 23:45 12/19/18 11:44 Nacl 0.45% 1000 Ml IV 75 mls/hr DIRECT COLBY Administration Ampicillin Sodium/Sulbactam Sodium 3 gm in 100 mls @ 200 mls/hr 12/18/18 14:00 12/19/18 11:45 Unasyn/Ns 3 Gm/100 Ml IV 200 mls/hr Q6HR COLBY Administration Protocol Metoclopramide HCl 10 mg 12/17/18 16:53 Reglan IV Q6H PRN Nausea And Vomiting Morphine Sulfate 4 mg 12/13/18 23:20 12/17/18 21:47 Morphine IV 4 mg Q4H PRN Administration Pain, Moderate (4-6) Ondansetron HCl 4 mg 12/13/18 23:20 12/17/18 21:47 Zofran IV 4 mg Q8H PRN Administration Nausea And Vomiting Pantoprazole Sodium 40 mg 12/14/18 10:00 12/19/18 09:11 Protonix PO 40 mg QDAY COLBY Administration Polyethylene Glycol 17 gm 12/17/18 16:49 12/18/18 14:05 Miralax 3350 PO 17 gm QDAY PRN Administration Constipation Promethazine HCl 25 mg 12/13/18 23:20 Phenergan NC Q6H PRN N/V IF NPO AND NO IV ACCESS Senna/Docusate Sodium 2 tab 12/17/18 16:49 Senokot S PO Q12H PRN Laxative Effect Sodium Biphosphate/Sodium Phosphate 133 ml 12/17/18 16:49 [place] NC QDAY PRN Bowel Movement Sodium Chloride 10 ml 12/14/18 10:00 12/19/18 09:12 Sodium Chloride Flush Syringe 10 Ml IV 10 ml BID COLBY Administration
--- NOTE | 2018-12-19 15:57 | Progress Note ---
Assessment and Plan 42-year-old female with nephrolithiasis, former smoker, COPD admitted with: 1) Bilateral staghorn nephrolithiasis, right-sided pyelonephritis: Status post bilateral nephrostomy tube placements on 12/14/2018. Right kidney apparently draining purulent fluid and culture is growing MSSA. Urine culture on admission growing Proteus. 2) LEONOR/CKD, obstructive uropathy: Nephrology following. Renally dose abx. 3) Acute choleysitisis: MRI abdomen/RUQ US results show numerous gallstones in the lumen of the gallbladder which represents some distention of the gallbladder into this location. Possibly with cholecystitis involving the fundus of the gallbladder. Cyst in the right lobe the liver. HIDA scan shows no uptake in the gallbladder. Recs: Continue Unasyn 3gm .Can discharge on Keflex 500 PO TID and Flagyl 500 mg PO TID for 7 days Subjective Date of service: 12/19/18 Principal diagnosis: LEONOR Interval history: 63-year-old woman who presents to the hospital with right-sided flank pain and abdominal pain radiating to suprapubic area which is 7 out of 10 And exacerbated by voiding. No fevers no chills and no hematuria. She is well known to the urology service Objective - Constitutional Vitals: Vital Signs - 12hr 12/19/18 08:03 Temperature 97.9 F Pulse Rate 69 Respiratory 18 Rate Blood Pressure 115/69 O2 Sat by Pulse 96 Oximetry General appearance: Present: no acute distress, well-nourished - EENT Eyes: PERRL, EOM intact ENT: hearing intact, clear oral mucosa Ears: bilateral: normal - Neck Neck: supple, normal ROM - Respiratory Respiratory effort: normal Respiratory: bilateral: CTA - Breasts Breasts: normal - Cardiovascular Heart rate: 78 Rhythm: regular Heart Sounds: Present: S1 & S2. Absent: gallop, rub Extremities: no ischemia, pulses intact, No edema, normal color, Full ROM - Gastrointestinal General gastrointestinal: Present: soft, non-tender, non-distended, normal bowel sounds - Genitourinary Female genitourinary: normal - Integumentary Integumentary: clear, warm, dry - Musculoskeletal Musculoskeletal: 1, strength equal bilaterally - Neurologic Neurologic: moves all extremities - Psychiatric Psychiatric: memory intact, appropriate mood/affect, intact judgment & insight - Labs CBC & Chem 7: 12/16/18 04:24 12/22/18 04:08
[2018-12-20 06:20] LABS: Calcium 8.4 mg/dL (8.4-10.2)
[2018-12-20] MEDS: UNASYN/NS 3 GM/100 ML 3 GM/100 ML BAG IV SCH ×3 (06:41→17:57)
[2018-12-20] MEDS: KCL 10MEQ/100ML 10 MEQ/100 ML BAG IV SCH ×2 (09:15→10:30)
[2018-12-20] MEDS: PROTONIX PO SCH (09:15)
[2018-12-20] MEDS: NACL 0.45% 1000 ML 1,000 ML IV SCH (09:16)
[2018-12-20] MEDS: LOVENOX SUB-Q SCH (09:16)
[2018-12-20] MEDS: SODIUM CHLORIDE FLUSH SYRINGE 10 ML IV SCH ×2 (09:16→22:20)
--- NOTE | 2018-12-20 14:15 | Progress Note ---
Assessment and Plan 42-year-old female with nephrolithiasis, former smoker, COPD admitted with: 1) Bilateral staghorn nephrolithiasis, right-sided pyelonephritis: Status post bilateral nephrostomy tube placements on 12/14/2018. Right kidney apparently draining purulent fluid and culture is growing MSSA. Urine culture on admission growing Proteus. 2) LEONOR/CKD, obstructive uropathy: Nephrology following. Renally dose abx. 3) Acute choleysitisis: MRI abdomen/RUQ US results show numerous gallstones in the lumen of the gallbladder which represents some distention of the gallbladder into this location. Possibly with cholecystitis involving the fundus of the gallbladder. Cyst in the right lobe the liver. HIDA scan shows no uptake in the gallbladder. Recs: Continue Unasyn 3gm .Can discharge on Keflex 500 PO TID and Flagyl 500 mg PO TID for 7 days Subjective Date of service: 12/20/18 Principal diagnosis: LEONOR Interval history: 63-year-old woman who presents to the hospital with right-sided flank pain and abdominal pain radiating to suprapubic area which is 7 out of 10 And exacerbated by voiding. No fevers no chills and no hematuria. She is well known to the urology service Objective - Constitutional Vitals: Vital Signs - 12hr 12/20/18 12/20/18 07:38 13:31 Temperature 97.9 F 98.3 F Pulse Rate 68 78 Respiratory 20 20 Rate Blood Pressure 115/63 142/77 O2 Sat by Pulse 98 98 Oximetry General appearance: Present: no acute distress, well-nourished - EENT Eyes: PERRL, EOM intact ENT: hearing intact, clear oral mucosa Ears: bilateral: normal - Neck Neck: supple, normal ROM - Respiratory Respiratory effort: normal Respiratory: bilateral: CTA - Breasts Breasts: normal - Cardiovascular Heart rate: 78 Rhythm: regular Heart Sounds: Present: S1 & S2. Absent: gallop, rub Extremities: no ischemia, pulses intact, No edema, normal color, Full ROM - Gastrointestinal General gastrointestinal: Present: soft, non-tender, non-distended, normal bowel sounds - Genitourinary Female genitourinary: normal - Integumentary Integumentary: clear, warm, dry - Musculoskeletal Musculoskeletal: 1, strength equal bilaterally - Neurologic Neurologic: moves all extremities - Psychiatric Psychiatric: memory intact, appropriate mood/affect, intact judgment & insight - Labs CBC & Chem 7: 12/16/18 04:24 12/22/18 04:08 Labs: Abnormal lab results 12/20/18 Range/Units 05:16 Potassium 3.2 L D (3.6-5.0) mmol/L Creatinine 1.3 H (0.7-1.2) mg/dL
[2018-12-20] MEDS ORDERED: PEPTO BISMOL PO PRN (16:00)
--- NOTE | 2018-12-20 18:53 | Progress Note ---
Assessment and Plan - Patient Problems (1) Acute kidney injury Current Visit: Yes Status: Acute Plan to address problem: Acute kidney injury possibly superimposed on chronic kidney disease. Kidney disease secondary to obstructive uropathy secondary to staghorn calculus and Pyelonephritis. Kidney function is unchanged. Follow up electrolytes and renal function (2) Hydronephrosis Current Visit: Yes Status: Acute Qualifiers: Hydronephrosis type: unspecified Qualified Code(s): N13.30 - Unspecified hydronephrosis Plan to address problem: S/p bilateral percutaneous nephrostomy tubes per urology. Follow-up by urologist (3) Nephrolithiasis Current Visit: No Status: Acute Plan to address problem: Staghorn calculus. Management by urologist. (4) Pyelonephritis Current Visit: No Status: Acute Plan to address problem: Continue antibiotics appropriately adjusted to the degree of renal function. (5) Hypokalemia Current Visit: Yes Status: Acute Plan to address problem: Supplement potassium on follow-up level Subjective Date of service: 12/20/18 Principal diagnosis: LEONOR Interval history: Patient seen lying in bed. She has no new complaints. Had some nausea but no vomiting. Still has pain in right flank Objective - Exam Narrative Exam: Frail elderly female lying in bed in no acute distress HEENT: NCAT, pink oral mucous membrane Neck: Supple, no venous distention CVS: S1S2 RRR with no murmur, rub or gallop Chest: Clear to auscultation Abdomen: Protuberant, soft, nontender, no organomegaly, bowel sounds are present Extremities: No edema Neuro: Awake, alert no focal deficits - Vital Signs Vital signs: Vital Signs - 12hr 12/20/18 12/20/18 07:38 13:31 Temperature 97.9 F 98.3 F Pulse Rate 68 78 Respiratory 20 20 Rate Blood Pressure 115/63 142/77 O2 Sat by Pulse 98 98 Oximetry - Lab 12/16/18 04:24 12/20/18 05:16 Most recent lab results Calcium 8.4 mg/dL (8.4-10.2) 12/20/18 05:16 Phosphorus 3.30 mg/dL (2.5-4.5) 12/20/18 05:16 Magnesium 1.90 mg/dL (1.7-2.3) 12/20/18 05:16 Medications & Allergies - Medications Allergies/Adverse Reactions: Allergies No Known Allergies Allergy (Verified 06/15/17 21:08) Home Medications: Home Medications Medication Instructions Recorded Confirmed Last Taken Type No Known Home Medications [No 12/16/18 12/16/18 Unknown History Reported Home Medications] Active Medications: Generic Name Dose Route Start Last Admin Trade Name Freq PRN Reason Stop Dose Admin Acetaminophen 650 mg 12/13/18 23:20 12/15/18 20:33 Tylenol PO 650 mg Q4H PRN Administration Pain MILD(1-3)/Fever >100.5/STEELE Acetaminophen/Hydrocodone Bitart 1 each 12/13/18 23:20 12/17/18 00:02 [place] 10/325 PO 1 each Q4H PRN Administration Pain , Severe (7-10) Bismuth Subsalicylate 262 mg 12/20/18 16:00 12/20/18 17:58 Pepto Bismol PO 262 mg Q6H PRN Administration Indigestion Enoxaparin Sodium 40 mg 12/18/18 10:00 12/20/18 09:16 Lovenox SUB-Q 40 mg QDAY@1000 COLBY Administration Sodium Chloride 1,000 mls @ 75 mls/hr 12/13/18 23:45 12/20/18 09:16 Nacl 0.45% 1000 Ml IV 75 mls/hr DIRECT COLBY Administration Ampicillin Sodium/Sulbactam Sodium 3 gm in 100 mls @ 200 mls/hr 12/18/18 14:00 12/20/18 17:57 Unasyn/Ns 3 Gm/100 Ml IV 200 mls/hr Q6HR COLBY Administration Protocol Metoclopramide HCl 10 mg 12/17/18 16:53 Reglan IV Q6H PRN Nausea And Vomiting Morphine Sulfate 4 mg 12/13/18 23:20 12/17/18 21:47 Morphine IV 4 mg Q4H PRN Administration Pain, Moderate (4-6) Ondansetron HCl 4 mg 12/13/18 23:20 12/17/18 21:47 Zofran IV 4 mg Q8H PRN Administration Nausea And Vomiting Pantoprazole Sodium 40 mg 12/14/18 10:00 12/20/18 09:15 Protonix PO 40 mg QDAY COLBY Administration Polyethylene Glycol 17 gm 12/17/18 16:49 12/18/18 14:05 Miralax 3350 PO 17 gm QDAY PRN Administration Constipation Promethazine HCl 25 mg 12/13/18 23:20 Phenergan MT Q6H PRN N/V IF NPO AND NO IV ACCESS Senna/Docusate Sodium 2 tab 12/17/18 16:49 Senokot S PO Q12H PRN Laxative Effect Sodium Chloride 10 ml 12/14/18 10:00 12/20/18 09:16 Sodium Chloride Flush Syringe 10 Ml IV 10 ml BID COLBY Administration
[2018-12-21] MEDS: UNASYN/NS 3 GM/100 ML 3 GM/100 ML BAG IV SCH ×4 (00:09→18:29)
[2018-12-21] MEDS: NACL 0.45% 1000 ML 1,000 ML IV SCH ×2 (02:44→18:29)
[2018-12-21] MEDS: SODIUM CHLORIDE FLUSH SYRINGE 10 ML IV SCH ×2 (10:24→22:03)
[2018-12-21] MEDS: LOVENOX SUB-Q SCH (10:24)
[2018-12-21] MEDS: PROTONIX PO SCH (10:24)
--- NOTE | 2018-12-21 16:33 | Progress Note ---
Assessment and Plan - Patient Problems (1) Acute kidney injury Current Visit: Yes Status: Acute Plan to address problem: Acute kidney injury possibly superimposed on chronic kidney disease. Kidney disease secondary to obstructive uropathy secondary to staghorn calculus and Pyelonephritis. Kidney function is unchanged. Follow up electrolytes and renal function (2) Hydronephrosis Current Visit: Yes Status: Acute Qualifiers: Hydronephrosis type: unspecified Qualified Code(s): N13.30 - Unspecified hydronephrosis Plan to address problem: S/p bilateral percutaneous nephrostomy tubes per urology. Follow-up by urologist (3) Nephrolithiasis Current Visit: No Status: Acute Plan to address problem: Staghorn calculus. Management by urologist. (4) Pyelonephritis Current Visit: No Status: Acute Plan to address problem: Continue antibiotics appropriately adjusted to the degree of renal function. (5) Hypokalemia Current Visit: Yes Status: Acute Plan to address problem: Follow potassium and magnesium in the morning Subjective Date of service: 12/21/18 Principal diagnosis: LEONOR Interval history: Patient seen lying in bed. She has no new complaints except for diarrhea. Had some nausea but no vomiting. Still has pain in right flank Objective - Exam Narrative Exam: Frail elderly female lying in bed in no acute distress HEENT: NCAT, pink oral mucous membrane Neck: Supple, no venous distention CVS: S1S2 RRR with no murmur, rub or gallop Chest: Clear to auscultation Abdomen: Protuberant, soft, nontender, no organomegaly, bowel sounds are present Extremities: No edema Neuro: Awake, alert no focal deficits - Vital Signs Vital signs: Vital Signs - 12hr 12/21/18 12/21/18 07:51 13:25 Temperature 98.4 F 98.7 F Pulse Rate 64 73 Respiratory 20 20 Rate Blood Pressure 122/62 119/62 O2 Sat by Pulse 97 96 Oximetry - Lab 12/16/18 04:24 12/20/18 05:16 Most recent lab results Calcium 8.4 mg/dL (8.4-10.2) 12/20/18 05:16 Phosphorus 3.30 mg/dL (2.5-4.5) 12/20/18 05:16 Magnesium 1.90 mg/dL (1.7-2.3) 12/20/18 05:16 Medications & Allergies - Medications Allergies/Adverse Reactions: Allergies No Known Allergies Allergy (Verified 06/15/17 21:08) Home Medications: Home Medications Medication Instructions Recorded Confirmed Last Taken Type No Known Home Medications [No 12/16/18 12/16/18 Unknown History Reported Home Medications] Active Medications: Generic Name Dose Route Start Last Admin Trade Name Freq PRN Reason Stop Dose Admin Acetaminophen 650 mg 12/13/18 23:20 12/15/18 20:33 Tylenol PO 650 mg Q4H PRN Administration Pain MILD(1-3)/Fever >100.5/STEELE Acetaminophen/Hydrocodone Bitart 1 each 12/13/18 23:20 12/17/18 00:02 [place] 10/325 PO 1 each Q4H PRN Administration Pain , Severe (7-10) Bismuth Subsalicylate 262 mg 12/20/18 16:00 12/20/18 17:58 Pepto Bismol PO 262 mg Q6H PRN Administration Indigestion Enoxaparin Sodium 40 mg 12/18/18 10:00 12/21/18 10:24 Lovenox SUB-Q 40 mg QDAY@1000 COLBY Administration Sodium Chloride 1,000 mls @ 75 mls/hr 12/13/18 23:45 12/21/18 02:44 Nacl 0.45% 1000 Ml IV 75 mls/hr DIRECT COLBY Administration Ampicillin Sodium/Sulbactam Sodium 3 gm in 100 mls @ 200 mls/hr 12/18/18 14:00 12/21/18 13:50 Unasyn/Ns 3 Gm/100 Ml IV 200 mls/hr Q6HR COLBY Administration Protocol Metoclopramide HCl 10 mg 12/17/18 16:53 Reglan IV Q6H PRN Nausea And Vomiting Morphine Sulfate 4 mg 12/13/18 23:20 12/17/18 21:47 Morphine IV 4 mg Q4H PRN Administration Pain, Moderate (4-6) Ondansetron HCl 4 mg 12/13/18 23:20 12/17/18 21:47 Zofran IV 4 mg Q8H PRN Administration Nausea And Vomiting Pantoprazole Sodium 40 mg 12/14/18 10:00 12/21/18 10:24 Protonix PO 40 mg QDAY COLBY Administration Polyethylene Glycol 17 gm 12/17/18 16:49 12/18/18 14:05 Miralax 3350 PO 17 gm QDAY PRN Administration Constipation Promethazine HCl 25 mg 12/13/18 23:20 Phenergan NC Q6H PRN N/V IF NPO AND NO IV ACCESS Senna/Docusate Sodium 2 tab 12/17/18 16:49 Senokot S PO Q12H PRN Laxative Effect Sodium Chloride 10 ml 12/14/18 10:00 12/21/18 10:24 Sodium Chloride Flush Syringe 10 Ml IV 10 ml BID COLBY Administration
--- NOTE | 2018-12-21 16:44 | Progress Note ---
Assessment and Plan 42-year-old female with nephrolithiasis, former smoker, COPD admitted with: 1) Bilateral staghorn nephrolithiasis, right-sided pyelonephritis: Status post bilateral nephrostomy tube placements on 12/14/2018. Right kidney apparently draining purulent fluid and culture is growing MSSA. Urine culture on admission growing Proteus. 2) LEONOR/CKD, obstructive uropathy: Nephrology following. Renally dose abx. 3) Acute choleysitisis: MRI abdomen/RUQ US results show numerous gallstones in the lumen of the gallbladder which represents some distention of the gallbladder into this location. Possibly with cholecystitis involving the fundus of the gallbladder. Cyst in the right lobe the liver. HIDA scan shows no uptake in the gallbladder. Recs: Continue Unasyn 3gm .Can discharge on Keflex 500 PO TID and Flagyl 500 mg PO TID for 7 days Subjective Date of service: 12/21/18 Principal diagnosis: LEONOR Interval history: 63-year-old woman who presents to the hospital with right-sided flank pain and abdominal pain radiating to suprapubic area which is 7 out of 10 And exacerbated by voiding. No fevers no chills and no hematuria. She is well known to the urology service Objective - Constitutional Vitals: Vital Signs - 12hr 12/21/18 12/21/18 07:51 13:25 Temperature 98.4 F 98.7 F Pulse Rate 64 73 Respiratory 20 20 Rate Blood Pressure 122/62 119/62 O2 Sat by Pulse 97 96 Oximetry General appearance: Present: no acute distress, well-nourished - EENT Eyes: PERRL, EOM intact ENT: hearing intact, clear oral mucosa Ears: bilateral: normal - Neck Neck: supple, normal ROM - Respiratory Respiratory effort: normal Respiratory: bilateral: CTA - Breasts Breasts: normal - Cardiovascular Heart rate: 78 Rhythm: regular Heart Sounds: Present: S1 & S2. Absent: gallop, rub Extremities: pulses intact, No edema, normal color, Full ROM - Gastrointestinal General gastrointestinal: Present: soft, non-tender, non-distended, normal bowel sounds - Genitourinary Female genitourinary: normal - Integumentary Integumentary: clear, warm, dry - Musculoskeletal Musculoskeletal: 1, strength equal bilaterally - Neurologic Neurologic: moves all extremities - Psychiatric Psychiatric: memory intact, appropriate mood/affect, intact judgment & insight - Labs CBC & Chem 7: 12/16/18 04:24 12/22/18 04:08
[2018-12-22] MEDS: UNASYN/NS 3 GM/100 ML 3 GM/100 ML BAG IV SCH ×3 (00:32→13:04)
[2018-12-22 05:06] LABS: Calcium 8.3 mg/dL (8.4-10.2)
[2018-12-22] MEDS: LOVENOX SUB-Q SCH (09:38)
[2018-12-22] MEDS: SODIUM CHLORIDE FLUSH SYRINGE 10 ML IV SCH (09:39)
[2018-12-22] MEDS: PROTONIX PO SCH (09:42)
[2018-12-22] MEDS ORDERED: K-DUR PO ONE ×2 (10:00→13:00)
--- NOTE | 2018-12-22 10:57 | Progress Note ---
Assessment and Plan - Patient Problems (1) Acute kidney injury Current Visit: Yes Status: Acute Plan to address problem: Acute kidney injury possibly superimposed on chronic kidney disease. Kidney disease secondary to obstructive uropathy secondary to staghorn calculus and Pyelonephritis. Kidney function is a bit worse probably secondary to volume depletion. Increase intravenous fluids. Follow up electrolytes and renal function (2) Hydronephrosis Current Visit: Yes Status: Acute Qualifiers: Hydronephrosis type: unspecified Qualified Code(s): N13.30 - Unspecified hydronephrosis Plan to address problem: S/p bilateral percutaneous nephrostomy tubes per urology. Follow-up by urologist (3) Nephrolithiasis Current Visit: No Status: Acute Plan to address problem: Staghorn calculus. Management by urologist. (4) Pyelonephritis Current Visit: No Status: Acute Plan to address problem: Continue antibiotics appropriately adjusted to the degree of renal function. (5) Hypokalemia Current Visit: Yes Status: Acute Plan to address problem: Supplement potassium and follow-up level Subjective Date of service: 12/22/18 Principal diagnosis: LEONOR Interval history: Patient seen lying in bed. She has no new complaints. Had some nausea but no vomiting. Still has pain in right flank that is improving Objective - Exam Narrative Exam: Frail elderly female lying in bed in no acute distress HEENT: NCAT, pink oral mucous membrane Neck: Supple, no venous distention CVS: S1S2 RRR with no murmur, rub or gallop Chest: Clear to auscultation Abdomen: Protuberant, soft, nontender, no organomegaly, bowel sounds are present Extremities: No edema Neuro: Awake, alert no focal deficits - Vital Signs Vital signs: Vital Signs - 12hr 12/22/18 12/22/18 03:19 07:23 Temperature 98.5 F 98.9 F Pulse Rate 66 Respiratory 18 18 Rate Blood Pressure 119/70 132/70 O2 Sat by Pulse 96 Oximetry - Lab 12/16/18 04:24 12/22/18 04:08 Most recent lab results Calcium 8.3 mg/dL (8.4-10.2) L 12/22/18 04:08 Phosphorus 3.30 mg/dL (2.5-4.5) 12/22/18 04:08 Magnesium 1.90 mg/dL (1.7-2.3) 12/22/18 04:08 Medications & Allergies - Medications Allergies/Adverse Reactions: Allergies No Known Allergies Allergy (Verified 06/15/17 21:08) Home Medications: Home Medications Medication Instructions Recorded Confirmed Last Taken Type No Known Home Medications [No 12/16/18 12/16/18 Unknown History Reported Home Medications] Active Medications: Generic Name Dose Route Start Last Admin Trade Name Freq PRN Reason Stop Dose Admin Acetaminophen 650 mg 12/13/18 23:20 12/15/18 20:33 Tylenol PO 650 mg Q4H PRN Administration Pain MILD(1-3)/Fever >100.5/STEELE Acetaminophen/Hydrocodone Bitart 1 each 12/13/18 23:20 12/17/18 00:02 [place] 10/325 PO 1 each Q4H PRN Administration Pain , Severe (7-10) Bismuth Subsalicylate 262 mg 12/20/18 16:00 12/20/18 17:58 Pepto Bismol PO 262 mg Q6H PRN Administration Indigestion Enoxaparin Sodium 40 mg 12/18/18 10:00 12/22/18 09:38 Lovenox SUB-Q 40 mg QDAY@1000 COLBY Administration Sodium Chloride 1,000 mls @ 125 mls/hr 12/13/18 23:45 12/21/18 18:29 Nacl 0.45% 1000 Ml IV 75 mls/hr DIRECT COLBY Administration Ampicillin Sodium/Sulbactam Sodium 3 gm in 100 mls @ 200 mls/hr 12/18/18 14:00 12/22/18 05:06 Unasyn/Ns 3 Gm/100 Ml IV 200 mls/hr Q6HR COLBY Administration Protocol Potassium Chloride 10 meq in 100 mls @ 100 mls/hr 12/22/18 11:00 Kcl 10meq/100ml IV 12/22/18 12:59 Q1H COLBY Metoclopramide HCl 10 mg 12/17/18 16:53 Reglan IV Q6H PRN Nausea And Vomiting Morphine Sulfate 4 mg 12/13/18 23:20 12/17/18 21:47 Morphine IV 4 mg Q4H PRN Administration Pain, Moderate (4-6) Ondansetron HCl 4 mg 12/13/18 23:20 12/17/18 21:47 Zofran IV 4 mg Q8H PRN Administration Nausea And Vomiting Pantoprazole Sodium 40 mg 12/14/18 10:00 12/22/18 09:42 Protonix PO 40 mg QDAY COLBY Administration Polyethylene Glycol 17 gm 12/17/18 16:49 12/18/18 14:05 Miralax 3350 PO 17 gm QDAY PRN Administration Constipation Promethazine HCl 25 mg 12/13/18 23:20 Phenergan MD Q6H PRN N/V IF NPO AND NO IV ACCESS Senna/Docusate Sodium 2 tab 12/17/18 16:49 Senokot S PO Q12H PRN Laxative Effect Sodium Chloride 10 ml 12/14/18 10:00 12/22/18 09:39 Sodium Chloride Flush Syringe 10 Ml IV 10 ml BID COLBY Administration
[2018-12-22] MEDS: KCL 10MEQ/100ML 10 MEQ/100 ML BAG IV SCH ×2 (12:57→14:30)
[2018-12-22 14:40] VITALS: BP 97/52
--- NOTE | 2018-12-22 14:43 | Discharge Summary ---
Providers - Providers Date of Admission: 12/13/18 23:20 Date of discharge: 12/22/18 Attending physician: JOE FOOTE 12/13/18 23:19 Consult to Physician [CONS] Routine Comment: called office/les Consulting Provider: MARCELL GONZALEZ Physician Instructions: Reason For Exam: obstructive stones 12/13/18 23:22 Consult to Physician [CONS] Routine Comment: Consulting Provider: VAL RUGGIERO Physician Instructions: Reason For Exam: leonor 12/17/18 11:31 Consult to Physician [CONS] Routine Comment: Consulting Provider: KAITLYN CHRISTENSEN Physician Instructions: Reason For Exam: Sepsis 12/17/18 12:28 Consult to Physician [CONS] Routine Comment: Consulting Provider: EVER PERERA Physician Instructions: Reason For Exam: gb mass? vs abscess in fundus [facility] Condition: Stable Procedures: Bilateral Nephrostomy Hospital course: S/p Bilateral Nephrostomy 42-year-old female with nephrolithiasis, former smoker, COPD admitted with: 1) Bilateral staghorn nephrolithiasis, right-sided pyelonephritis: Status post bilateral nephrostomy tube placements on 12/14/2018. Right kidney apparently draining purulent fluid and culture is growing MSSA. Urine culture on admission growing Proteus. 2) LEONOR/CKD, obstructive uropathy: Nephrology following. Renally dose abx. 3) Acute choleysitisis: MRI abdomen/RUQ US results show numerous gallstones in the lumen of the gallbladder which represents some distention of the gallbladder into this location. Possibly with cholecystitis involving the fundus of the gallbladder. Cyst in the right lobe the liver. HIDA scan shows no uptake in the gallbladder. Disposition: DC-01 TO HOME OR SELFCARE Core Measure Documentation - Palliative Care Palliative Care/ Comfort Measures: Not Applicable - Core Measures Any of the following diagnoses?: none Exam - Constitutional Vitals: Temp Pulse Resp BP Pulse Ox 98.9 F 66 18 132/70 96 12/22/18 07:23 12/22/18 07:23 12/22/18 07:23 12/22/18 07:23 12/22/18 07:23 General appearance: Present: no acute distress, well-nourished - EENT Eyes: Present: PERRL ENT: hearing intact, clear oral mucosa - Neck Neck: Present: supple, normal ROM - Respiratory Respiratory effort: normal Respiratory: bilateral: CTA - Cardiovascular Heart rate: 78 Rhythm: regular Heart Sounds: Present: S1 & S2. Absent: rub, click - Extremities Extremities: pulses symmetrical, No edema Peripheral Pulses: within normal limits - Abdominal General gastrointestinal: Present: soft, non-tender, non-distended, normal bowel sounds Female genitourinary: Present: normal - Integumentary Integumentary: Present: clear, warm, dry - Musculoskeletal Musculoskeletal: gait normal, strength equal bilaterally - Psychiatric Psychiatric: appropriate mood/affect, intact judgment & insight - Neurologic Neurologic: CNII-XII intact, moves all extremities Plan Activity: no restrictions Diet: low cholesterol, low salt Follow up with: SANTA HUGH[facility]ES[facility] MD KRISTY [Primary Care Provider] - 3-5 Days CARY HOOVER MD [Staff Physician] - 7 Days VAL RUGGIERO MD [Staff Physician] - 7 Days Prescriptions: metroNIDAZOLE [Flagyl] 500 mg PO Q8HR #21 tablet cephALEXin [Keflex] 500 mg PO Q8HR #21 cap HYDROcodone/APAP 7.5-325 [[place] 7.5/325] 1 each PO Q8HR PRN #16 tablet PRN Reason: Pain Pantoprazole [Protonix TAB] 40 mg PO QDAY #30 tablet
== END 2018-12-22 17:40 | disposition home health service (06) | DRG 683 ==
LOC: ED 16:20 → 2B-ACE 23:20
PROVIDERS: ADMIT Internal Medicine; ATTEND Internal Medicine
PROC: 0T9430Z Drainage of Left Kidney Pelvis with Drainage Device, Percutaneous Approach (ICD-10-PCS; principal; 2018-12-14)
PROC: 0T9330Z Drainage of Right Kidney Pelvis with Drainage Device, Percutaneous Approach (ICD-10-PCS; 2018-12-14)
DX: N17.0 Acute kidney failure with tubular necrosis (principal); K80.00 Calculus of gallbladder with acute cholecystitis without obstruction; R65.10 Systemic inflammatory response syndrome (SIRS) of non-infectious origin without acute organ dysfunction; N13.6 Pyonephrosis; J44.9 Chronic obstructive pulmonary disease, unspecified; N18.9 Chronic kidney disease, unspecified; K76.89 Other specified diseases of liver; E87.6 Hypokalemia; D72.829 Elevated white blood cell count, unspecified; Z79.899 Other long term (current) drug therapy; Z22.321 Carrier or suspected carrier of Methicillin susceptible Staphylococcus aureus; Z87.891 Personal history of nicotine dependence
CPT/HCPCS: 36415; 50432; 51702; 71045; 74176; 74183; 76705; 78226; 80048; 80053; 81001; 83690; 83735; 84100; 85025; 87040; 87076; 87086; 87116; 87186; 96361; 96372; 96374; 96375; G0378; A9537; A9577; C1729; C1769; J0295; J0696; J0878; J1650; J1885; J1956; J2250; J2270; J2405; J3010; J3480; J7030; J7050; Q9967

== ENCOUNTER 2019-03-21 08:28 | Day surgery (SDC) | payer MEDICARE ==
[~2019-03-21 08:28] MED LIST: ceFAZolin/STERILE WATER 2 GM/20 ML SYRINGE IV NR
[2019-03-21] MEDS ORDERED: fentaNYL 100 MCG/2 ML INJ IV PRN (09:00)
[2019-03-21] MEDS ORDERED: ONDANSETRON 4 MG/2 ML INJ IV PRN (09:00)
[2019-03-21] MEDS ORDERED: LACTATED RINGERS 1,000 ML IV SCH (09:00)
--- NOTE | 2019-03-21 09:28 | Anesthesia Day of Surgery ---
Anesthesia Day of Surgery - Day of Surgery Patient Examined: Yes Patient H&P Reviewed: Yes Patient is NPO: Yes
--- NOTE | 2019-03-21 09:28 | Anesthesia Consultation ---
Anesthesia Consult and Med Hx Date of service: 03/21/19 - Airway Anesthetic Teeth Evaluation: Poor ROM Head & Neck: Adequate Mental/Hyoid Distance: Adequate Mallampati Class: Class II Intubation Access Assessment: Good - Pulmonary Exam CTA: Yes - Cardiac Exam Cardiac Exam: RRR - Pre-Operative Health Status ASA Pre-Surgery Classification: ASA2 Proposed Anesthetic Plan: General (Severely decayed teeth) - Pulmonary Hx Smoking: Yes (quit 10yrs) COPD: Yes (no inhaler use ) Hx Pneumonia: Yes Hx Sleep Apnea: No (TIFFANIE PRE SCREEN LOW RISK) - Cardiovascular System Hx Hypertension: No Hx Heart Attack/AMI: No - Central Nervous System CVA: No Hx Back Pain: Yes (w/ neuropathy) Hx Psychiatric Problems: No - Gastrointestinal Hx Gastroesophageal Reflux Disease: Yes (controlled) - Endocrine Hx Liver Disease: No Hx Insulin Dependent Diabetes: No Hx Non-Insulin Dependent Diabetes: No Hx Thyroid Disease: No - Other Systems Hx Alcohol Use: No Hx Substance Use: No Hx Cancer: No Hx Obesity: No
[2019-03-21] MEDS ORDERED: fentaNYL 100 MCG/2 ML INJ ONE (09:56)
[2019-03-21] MEDS ORDERED: PROPOFOL 200 MG/20 ML VIAL IV ONE (09:56)
[2019-03-21] MEDS ORDERED: HYDROmorphone 1 MG/1 ML INJ IV PRN (10:00)
[2019-03-21] MEDS ORDERED: PHENYLEPHRINE/NS 1,000 MCG/10 ML SYRINGE (OR USE) IV ONE (10:00)
[2019-03-21] MEDS ORDERED: LIDOCAINE MPF (2%) 20 MG/1 ML VIAL 5 ML ONE (10:00)
--- NOTE | 2019-03-21 10:43 | Post Operative Note ---
Date of procedure: 03/21/19 Pre-op diagnosis: stones Post-op diagnosis: same Findings: huge stone Procedure: eswl Anesthesia: JUAN Surgeon: MARCELL GONZALEZ Estimated blood loss: none Pathology: none Condition: stable Disposition: PACU
--- NOTE | 2019-03-21 10:44 | Discharge Summary ---
Short Stay Discharge Plan Activity: other (no straing ) Weight Bearing Status: Full Weight Bearing Diet: low fat, low cholesterol, low salt Special Instructions: other (inc fluids ) Durable Medical Equipment Needed Upon Discharge: other (perc tube care ) Follow up with: PRIMARY CARE, [Primary Care Provider] - 7 Days JAYSON BOLIVAR MD [Staff Physician] - 7 Days
--- NOTE | 2019-03-21 10:45 | Operative Report ---
PREOPERATIVE DIAGNOSES: Bilateral stones, bilateral nephrostomy tube, very large stone burden, left kidney. PROCEDURE: Left ESWL. SURGEON: Dr. Hare. ANESTHESIA: General. FINDINGS: This is a woman with bilateral stones. She has a perc tube. She has a very large stone, left renal pelvis. She now presents for lithotripsy. DESCRIPTION OF PROCEDURE: The patient was brought to lithotripsy and placed on the operating table. Following induction of anesthesia, the stone was easily localized both the AP and oblique image. Shocks were begun at 1 kV, increased to maximum of 7 kV. A total of 2500 shocks were given. Max as mentioned was 7 kV. I think this patient may need more invasive procedures such as percutaneous nephrolithotomy because the stone did look like it was more lucid, but is still quite large. She was brought to recovery in stable condition. JOB# [id number] CECI/MARY JANE
[2019-03-21] MEDS ORDERED: LACTATED RINGERS 1,000 ML ONE (10:58)
[2019-03-21 11:22] VITALS: BP 94/55
[2019-03-21] MEDS ORDERED: HYDROcodone/ACETAMINOPHEN 5-325 MG TAB PO PRN (11:48)
--- NOTE | 2019-03-21 21:28 | Post Anesthesia Evaluation ---
- Post Anesthesia Evaluation Patient Participated: Yes Airway Patent: Yes Stable Respiratory Function: Yes Nausea/Vomiting: No Temp > 96.8F: Yes Pain Manageable: Yes Adequeate Hydration: Yes Anesthesia Complications: No Block Receding Appropriately: Not Applicable Patient on Ventilator: No
== END 2019-03-21 08:29 | disposition home or self-care (01) ==
LOC: OR 08:28
PROVIDERS: ATTEND Urology
DX: N20.0 Calculus of kidney (principal); J44.9 Chronic obstructive pulmonary disease, unspecified; K21.9 Gastro-esophageal reflux disease without esophagitis; D72.829 Elevated white blood cell count, unspecified; F32.9 Major depressive disorder, single episode, unspecified; Z79.899 Other long term (current) drug therapy; Z87.891 Personal history of nicotine dependence; Z87.440 Personal history of urinary (tract) infections; Z98.890 Other specified postprocedural states
CPT/HCPCS: 50590; J0690; J2370; J2704; J3010; J7120